=== PATIENT | female | born 1990 | race Caucasian/White ===

== ENCOUNTER → 2024-01-22 09:49 | Outpatient (CLI) | payer OTHER, SELFPAY ==
[2024-01-22 16:37] LABS: Urine N gonorrhoeae NOT DETECTED
[2024-01-22 16:39] LABS: Urine Chlamydia NOT DETECTED
== END ==
PROVIDERS: PCP Obstetrics & Gynecology; Referring Provider Obstetrics & Gynecology; Visit Provider Obstetrics & Gynecology
DX: Z11.3 Encounter for screening for infections with a predominantly sexual mode of transmission (principal)
CPT/HCPCS: 87491; 87591

== ENCOUNTER → 2024-02-25 07:26 | Outpatient (CLI) | payer OTHER, SELFPAY ==
--- NOTE | 2024-02-25 07:27 | DI.US.S_ITS ---
PROCEDURE: US PELVIC COMPLETE INDICATIONS: Pelvic pain TECHNIQUE: Real-time scanning was performed of the pelvic organs, with image documentation. Additional endovaginal scanning was necessary due to incomplete visualization of the adnexal and endometrial structures by transabdominal scanning. COMPARISON: None. FINDINGS: Uterus: Uterus is anteverted and mildly enlarged at 10.2 x 4.8 x 5.8 cm. The myometrium is homogeneous. The endometrium measures 2 mm combined thickness. Ovaries: The right ovary measures 7.3 x 4.3 x 4.8 cm, with a calculated ovarian volume of 78.5 cc. The left ovary measures 2.2 x 2.1 x 3.0 cm, with a calculated ovarian volume of 7.5 cc. The left ovary is only identified on the transabdominal scan. Within the right ovary, there is a 6.4 x 4.2 x 4.7 centimeter simple cyst with a peripheral 0.5 centimeter cystic lesion. Other: No pathologic free abdominal or pelvic fluid. Nabothian cysts are present at the cervix. IMPRESSION: 1. 0.5 cm simple cystic lesion within a 6.4 cm right ovarian simple cyst. 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 2. Otherwise, no sonographic abnormality of the uterus or ovaries. These findings were communicated via telephone to Dr Arzate, by Nitin Luther MD on 02/26/2024 at 12:45 p.m. We strive to produce accurate, complete, and clear reports of imaging services. To assist us in improving patient care, this report was composed using standard report templates and voice recognition software. Therefore, it may contain abnormal punctuation, insertions and/or omissions. Occasional wrong-word or sound-alike substitutions may occur. Though we review the report and make efforts to correct it, we do recommend that the report be read carefully in proper context to recognize any text inaccuracies. Dictated by: Nitin Luther M.D. on 02/26/2024 at 12:32 Approved by: Nitin Luther M.D. on 02/26/2024 at 12:47
== END ==
LOC: US 07:27
PROVIDERS: PCP Obstetrics & Gynecology; Referring Provider Obstetrics & Gynecology; Visit Provider Obstetrics & Gynecology
DX: N92.0 Excessive and frequent menstruation with regular cycle (principal); N83.291 Other ovarian cyst, right side; R10.2 Pelvic and perineal pain
CPT/HCPCS: 76856

== ENCOUNTER → 2024-02-26 14:39 | Outpatient (CLI) | payer OTHER, SELFPAY ==
[2024-02-26 15:26] LABS: HCG Quantitative /Beta subunit < 2.39 mIU/mL
== END ==
PROVIDERS: Referring Provider Obstetrics & Gynecology; Visit Provider Obstetrics & Gynecology
DX: R10.2 Pelvic and perineal pain (principal); R19.00 Intra-abdominal and pelvic swelling, mass and lump, unspecified site
CPT/HCPCS: 84702

== ENCOUNTER 2024-02-26 16:57 | Observation (INO) | payer OTHER, SELFPAY ==
[2024-02-26] VITALS (9 sets, daily range): BP systolic 112–122; BP diastolic 69–88; PULSE 80–97; RESP 12–18; TEMP 36.7–36.8; O2SAT 97–99; BMI 28.0
--- NOTE | 2024-02-26 | PATH_ITS ---
[facility] Accession Number: [id number] No. of containers..01 Tissue . 01 Material submitted: . ovary - RIGHT OVARY . 01 Diagnosis: RIGHT OVARY, OOPHORECTOMY: Disrupted fragments of ovary with multiple benign cystic follicles and stromal hyperplasia, most consistent with histologic features of polycystic ovary. Ovarian tissue is viable with no definite regions of necrosis or hemorrhage; no definite features of torsion identified. No neoplasia identified. MRV 03/04/2024 1554 Local . 01 Comment: As part of routine advanced quality engineer, this case was also reviewed by Dr. Shaikh, who agrees with the interpretation. . 01 Electronically signed: . Soheila Montilla MD, Pathologist NPI- [id number] . 01 Gross description: . Received in formalin with two patient identifiers and right ovary, is a disrupted ovary with cyst (11 grams, 4.2 x 3.7 x 2.3 cm). The membranous presumed cyst velázquez are thin and partially translucent with no excrescences or thickening grossly identified. Sectioning the ovary reveals unremarkable parenchyma with no additional lesions identified. Insurance Agency Sales Manager sections are submitted in A1-A3. ([id number]) The remaining specimen is submitted in cassettes A4-A12. ([id number]) /MRV 03/04/2024 1555 Local . 01 Pathologist provided ICD-10: R10.2 . 01 CPT . 229698 Specimen Comment: A courtesy copy of this report has been sent to [facility] Pathology Performed at: [address] [address], [place], [place] [id number] MD Thiago Perales MD Phone: [phone]
[2024-02-26] MEDS: HYDROMORPHONE 1 MG INJ 0.5 MG IV (17:44)
[2024-02-26 17:47] LABS: Add Manual Diff / Slide Review NO; Basophils Absolute Auto 100 /uL (0-100); Basophils Percent Auto 0.5 % (0-2); Eosinophils Absolute Auto 0 /uL (0-450); Eosinophils Percent Auto 0.2 % (2-4); Hematocrit 39.7 % (36-46); Hemoglobin 13.6 g/dL (12.0-16.0); Lymphocytes Absolute Auto 1900 /uL (1100-4500); Lymphocytes Percent Auto 18.3 % (25-40); Mean Corpuscular HGB Conc 34.3 % (30-36); Mean Corpuscular Hemoglobin 31.1 PG (26-34); Mean Corpuscular Volume 90.6 fL (80-100); Monocytes Absolute Auto 400 /uL (0-900); Monocytes Percent Auto 3.6 % (3-14); Neutrophils Absolute Auto 7900 /uL (1500-7000); Neutrophils Percent Auto 77.4 % (50-75); Platelet Count 271 X10^3/uL (150-400); Red Blood Cell Count 4.38 X10^6/uL (4.0-5.2); White Blood Cell Count 10.3 X10^3/uL (4.5-11.0)
--- NOTE | 2024-02-26 18:05 | PC.NURSE ---
Pt direct admit from MD office, arrived at 1710 A/O states pain 8/10, med w/good relief. Ultrasound guided IV inserted w/o incidence. Surgery scheduled at 1999 Call light w/in reach, pt calls appropriately for needs Continue w/plan of care.
--- NOTE | 2024-02-26 18:47 | PM.GYNHP.1 ---
History of Present Illness History of Present Illness Reason for admission: pelvic pain Narrative: Mallika Lucas is a 34 year old female , direct admission from OBGYN clinic for severe pelvic pain, concern for ovarian torsion with planned surgical intervention later this evening. See prior outpatient clinical documentation from same date. Pt met in acute care following admission, states no questions at this time. PFSH Social History household members: family Smoking Status: Never smoker alcohol intake: never Meds Home Medications and Allergies Home Medications Medication Instructions Recorded Confirmed Type escitalopram oxalate 20 mg tablet 20 mg PO DAILY 11/22/23 02/26/24 History (Lexapro) levonorgestrel 120 mcg-e.estradiol 1 patch transdermal Q7D 11/22/23 02/26/24 History 30 mcg/24 hr weekly transderm patch (Twirla) metformin 500 mg tablet 500 mg PO 3XD 11/22/23 02/26/24 History semaglutide 3 mg tablet (Rybelsus) 3 mg PO QAM 11/22/23 02/26/24 History Allergies Allergy/AdvReac Type Severity Reaction Status Date / Time No Known Drug Allergies Allergy Unverified 02/26/24 16:08 Review of Systems Review of Systems ROS: Yes All systems reviewed with the patient and are negative except as otherwise documented Exam Const General: cooperative, diaphoretic and ill appearing Nutritional Appearance: average body habitus Orientation: alert, awake and oriented x3 Limitations: mental status not altered Resp Effort & Inspection: normal respiratory effort and able to speak in complete sentences Cardio Pulses: normal peripheral pulses GI Inspection: normal to inspection Palpation: soft and guarding Other: deferred Skin General: no rashes or lesions noted Neuro General: patient alert, patient awake and patient oriented x3 Extrem General: normal to inspection Psych Mental Status: mental status grossly normal Judgment: judgment good Objective Labs 02/26/24 17:36 Labs: Laboratory Results - last 24 hr 02/26/24 17:36 WBC 10.3 RBC 4.38 Hgb 13.6 Hct 39.7 MCV 90.6 MCH 31.1 MCHC 34.3 RDW 13.0 Plt Count 271 Neut % (Auto) 77.4 H Lymph % (Auto) 18.3 L [place] % (Auto) 3.6 Eos % (Auto) 0.2 L Baso % (Auto) 0.5 Neut # (Auto) 7900 H Lymph # (Auto) 1900 [place] # (Auto) 400 Eos # (Auto) 0 Baso # (Auto) 100 Blood Type B Positive Antibody Screen Negative Assessment & Plan Assessment and plan (1) Pelvic pain: Status: Acute (2) Pelvic mass in female: Status: Acute Plan 34yo with acute onset pelvic pain, 6cm ROV cyst on US with concern for ovarian torsion Patient admitted to acute care floor for 23h observation, anticipate surgical intervention at 2000 secondary to last PO intake at 1400 today NPO except for meds CBC on admission wnl without significant leukocytosis, afebrile/VSS with low concern for underlying TOA/infectious process anticipate dc to home in AM following procedure pending clinical course Time-Based Coding :: [TOTAL MINUTES] spent with patient and on the chart (including review of chart, obtaining history, exam, reviewing outside data, placing orders, documenting exam and treatment plan, and counseling patient) on [DATE].
--- NOTE | 2024-02-26 18:52 | PM.PREOP ---
Pre-operative Note Interval Note History & Physical reviewed/Exam performed by Physician: Yes Changes to H&P: No H&P completed within 30 days and has changed as indicated here:: 02/26/24 ASA Class (for procedural sedation): II
[2024-02-26] MEDS: LACTATED RINGERS 500 ML 1000 ML IV (19:53)
[2024-02-26] MEDS: ACETAMINOPHEN IV 1,000 MG/100 ML VIAL 400 MG IV (20:15)
--- NOTE | 2024-02-26 20:23 | SUR.OPER ---
Lithotomy on padded OR bed. [place] Pad Positioner under torso. Head on pillow, arms padded and tucked at sides. Legs secured in padded yellow fins stirrups.
[2024-02-26] MEDS: BUPIVACAINE 0.25% (PF) VIAL 30 ML INJ (20:31)
--- NOTE | 2024-02-26 21:01 | PM.OP.1 ---
Operative Date/Time/Diagnoses Date of procedure: 02/26/24 Time of procedure: 20:17 Pre-op diagnosis: ROV neoplasm Post-op diagnosis: same Procedure & Clinicians Procedure: diagnostic laparoscopy, R oophorectomy Same procedure as scheduled: Yes Indications: acute pelvic pain, abnormal pelvic imaging with 6cm ROV mass Surgeon: Domitila Arzate Click Yes if Unassisted: Yes Anesthesia Type: General Operative Notes Findings: normal external female genitalia grossly enlarged R ovary without identifiable/distinct ovarian stroma secondary to distension by mass normal appearing bilateral fallopian tubes, L ovary, uterus negative abdominal survey normal appearing appendix Closure Type: primary Specimen(s): other (R ovary ) Estimated Blood Loss (mL): 5 Blood products transfused: none Procedure in detail: The patient was taken to the operating room, placed on the operating table in the supine position and intubated with ETT.? The patient was then placed in the lithotomy position with her legs in Elvis stirrups.? The patient was then examined under anesthesia with the above findings, then prepped and draped in a sterile fashion.? A gurrola catheter was placed for urinary diversion and a sterile sponge stick was placed in the vagina for atraumatic uterine manipulation.? Time out was performed. A 5mm incision was made infraumbilically and abdominal entry was achieved under direct visualization using the 5mm VisaPort trocar.? Abdomen was insufflated to 15mmHg.? Two lateral 5-mm ports were placed in a similar manner under direct visualization.? The uterus was anteverted and abdominal survey was noted with findings as noted above. The right infundibulopelvic ligament was identified, elevated and the Powerseal was used to transect and ligate the IP. The powerseal was again used to dissect the R fallopian tube away from the mesosalpinx.? The utero-ovarian artery was burned and ligated followed by dissection of the distorted ovarian neoplasm away from the mesosalpinx. With complete amputation the specimen was placed within the cul-de-sac and visual inspection of all dissection beds revealed excellent hemostasis including an area of broad ligament undermined on R posterior aspect secondary to adhesion of neoplasm. The infraumbilical incision was sharply extended and the 5mm trocar was removed and replaced with 11mm trocar under direct visualization. The Endocatch bag was introduced and the specimen was placed within under direct visualization without spill. The bag was then blanche to the level of the incision and insufflation was released. The specimen was bluntly ruptured and cyst contents were noted to serosanguinous and suctioned away from field. Following cyst rupture the Endocatch bag was brought easily through the incision, contents passed off the field for permanent study. The abdomen was re-insufflated and survey was again completed. Brief suction irrigation was performed with noted hemostasis. Lateral trocars were removed under direct visualization and insufflation was released and positive pressure ventilation was administered via anesthesia to assist with evacuation of pneumoperitoneum. The infraumbilical fascial incision closed using 0-0 vicryl on UR6 needle. Skin of all incisions was closed with 4-0 monocryl in a subcuticular fashion followed by application of dermabond. All instruments were removed from the vagina and patient had her legs taken out of stirrups. All counts correct x2. Patient was extubated and taken to PACU in stable condition. Complications: none Post-operative Condition: stable Disposition: Acute Care Plan for aftercare: anticipate dc to home in AM pending clinical course, continued observation
[2024-02-26] MEDS: HYDROMORPHONE 1 MG INJ IV ×3 (21:09→21:24)
[2024-02-26] MEDS: OXYCODONE IR 5 MG TABLET PO (21:22)
[2024-02-26] MEDS: hydrOXYzine 50 MG/ML INJ 25 MG IM (21:43)
[2024-02-26] MEDS: KETOROLAC 30 MG/ML VIAL IV (22:47)
[2024-02-27 00:38] VITALS: BP 112/80; PULSE 74; RESP 18; TEMP 36.7; O2SAT 97
[2024-02-27 01:16] VITALS: BP 96/57; PULSE 74
[2024-02-27] MEDS: ACETAMINOPHEN 325 MG TABLET 650 MG PO ×2 (01:50→09:52)
[2024-02-27] MEDS: KETOROLAC 30 MG/ML VIAL IV (04:43)
[2024-02-27 06:29] VITALS: BP 145/86; PULSE 86; RESP 19; TEMP 37; O2SAT 96
[2024-02-27 08:00] VITALS: BP 93/56; PULSE 63; RESP 18; TEMP 36.6; O2SAT 98
[2024-02-27] MEDS: IBUPROFEN 600 MG TABLET PO (09:51)
--- NOTE | 2024-02-27 10:58 | P.DS_ITS ---
History of Present Illness History of Present Illness Date Patient Seen: 02/27/24 Time Patient Seen: 10:59 Chief complaint: Acute abdominal pain, right ovarian mass Narrative: Mallika Lucas is a 34 year old female , direct admission from OBGYN clinic for severe pelvic pain, concern for ovarian torsion with planned surgical intervention later this evening. See prior outpatient clinical documentation from same date. Pt met in acute care following admission, states no questions at this time. Discharge Providers Provider Date of admission: 02/26/24 16:57 Discharge Date: 02/27/24 Primary care physician: Doctor Nehemiah MD Discharge provider: Hugo De La Cruz MD Summary Hospital Course Discharge Diagnosis: Cystic right ovarian mass Acute abdominal pain Status post diagnostic laparoscopy with laparoscopic right oophorectomy Hospital Course: On the evening of 02/26/2024, the patient was admitted for emergent diagnostic laparoscopy due to suspected right ovarian torsion. Full details of the procedure are well summarized on Dr. Domitila Arzate's operative note of that date. Following her surgery, the patient has done extremely well with prompt return of bowel and bladder function, she is ambulating independently, tolerating a regular diet, and her pain is well controlled with oral pain medications. She will be discharged at this time to home in an afebrile normotensive condition after counseling regarding precautionary symptoms, limitations activity, medications, and plans for follow-up which will be in 2 weeks. Medications at discharge will include resumption of all preadmission medications, plus oxycodone 5 mg p.o. every 4-6 hours as needed for pain, dispense 12 with no refills, Cipro 500 mg p.o. b.i.d. x5 days for UTI prophylaxis following catheterization, and ibuprofen 600 mg p.o. q.6 hours as needed for pain. Status at Discharge Cognitive/behavioral status at discharge: oriented Functional status at discharge: independent ambulation Overall status at discharge: patient is progressing back to baseline Time Spent with Patient Time spent: Less than 30 minutes Exam Vital Signs (past 8 hours): - 02/27/24 06:29 02/27/24 08:00 Temperature 98.6 F 97.9 F Pulse Rate 86 63 Respiratory Rate 19 18 Blood Pressure 145/86 H 93/56 L Pulse Oximetry 96 98 Oxygen Flow Rate 0 0 Oxygen Delivery Method Room Air Oxygen Flow Rate 0 Const General: cooperative and comfortable Nutritional Appearance: average body habitus Orientation: alert and oriented x3 HENMT Head: normal to inspection, atraumatic and abrasion Ears: hearing grossly normal bilaterally Face and sinus: face symmetric Eyes General: appearance normal, both eyes and all related structures Conjunctivae: conjunctivae normal Sclera: sclerae normal EOM: EOM intact bilaterally Neck Neck: normal visual inspection Resp Effort & Inspection: normal respiratory effort and able to speak in complete sentences Auscultation: clear to auscultation bilaterally Cardio Rate: regular rate Rhythm: regular rhythm Heart Sounds: S1 normal, S2 normal and no murmurs GI Inspection: normal to inspection and incision (Laparoscopy port incisions clean and dry) Palpation: soft, no hepatosplenomegaly and tender (Mild, diffuse postsurgical tenderness) External Female Exam: other (No significant bleeding noted) Extrem General: no calf tenderness Psych Appearance: grossly normal Mental Status: mental status grossly normal Speech and Movement: speech and movement normal Mood: congruent mood Affect: normal affect Attitude: cooperative Thought Process: normal Thought Content: normal Judgment: judgment good Objective Labs 02/26/24 17:36 Labs: Laboratory Results - last 24 hr 02/26/24 17:36 WBC 10.3 RBC 4.38 Hgb 13.6 Hct 39.7 MCV 90.6 MCH 31.1 MCHC 34.3 RDW 13.0 Plt Count 271 Neut % (Auto) 77.4 H Lymph % (Auto) 18.3 L [place] % (Auto) 3.6 Eos % (Auto) 0.2 L Baso % (Auto) 0.5 Neut # (Auto) 7900 H Lymph # (Auto) 1900 [place] # (Auto) 400 Eos # (Auto) 0 Baso # (Auto) 100 Blood Type B Positive Antibody Screen Negative PENDING SALE TO [facility] Social History household members: family Smoking Status: Never smoker alcohol intake: never Discharge Assessment & Plan Assessment and Plan Assessment: Cystic right ovarian mass Acute abdominal pain Status post diagnostic laparoscopy with laparoscopic right oophorectomy Plan of Treatment: Routine postoperative care with follow-up planned for 2 weeks postop Discharge Plan Discharge Plan Patient Disposition: Home Provider Discharge Comment: Please review the written instructions you received when you were discharged from the hospital. Your follow-up appointment will be scheduled for 2 weeks after your surgery and we look forward to seeing you then. If however in the meanwhile you have any issues, concerns, or questions, please this either by phone at [phone], or via the patient portal. Discharge orders & Medications Prescriptions: New ibuprofen 600 mg Tablet 600 mg PO Q6HR Qty: 20 0RF oxycodone 5 mg Tablet 5 mg PO Q4HR PRN (Reason: Pain, Moderate (4-6)) Qty: 12 0RF ciprofloxacin HCl [Cipro] 500 mg tablet 500 mg PO BID 5 Days Qty: 10 0RF Continued metformin 500 mg tablet 500 mg PO 3XD Rybelsus 3 mg tablet 3 mg PO QAM escitalopram oxalate [Lexapro] 20 mg tablet 20 mg PO DAILY Twirla 120-30 mcg/24 hr patch weekly 1 patch transdermal Q7D Rx Instructions: apply once weekly for 3 weeks of a 4-week cycle Follow up/Referrals: Doctor Nehemiah, [Primary Care Provider] - Discharge Health Status Multidrug resistant organism: No MDRO Diet/Activity/Treatments Diet: Diet as Tolerated Activity: As tolerated Other treatments: [id number] Tylenol may be used for additional pain relief. Prfu-aqc-[id number] stool softeners and/or MiraLax may be used as needed for constipation. Skin/Wound/Dressing Care Report to your healthcare provider any signs of infection, such as:: chills, fever, increased pain, unusual drainage and unusual redness Dressing: N/A Visit Report/Discharge Packet Instructions: DI for Laparoscopy, DI for Prescription Opioid Use Stand Alone Forms: Surgery Discharge Discharge Data Primary Care Provider: Doctor Nehemiah Attending Provider: Domitila Arzate Admit Date/Time: 02/26/24 16:57
[2024-02-27] MEDS: OXYCODONE IR 5 MG TABLET PO (11:25)
--- NOTE | 2024-02-27 12:07 | PC.NURSE ---
Pt A/O 3 lap sites across abdomen CDI Med for discomfort w/ good relief. Orders for discharge. Sl D/C intact. Home instructions given w/understanding Pt escorted by staff via W/C to waiting vehicle D/c in stable post op status
== END 2024-02-27 12:00 | disposition home or self-care (01) ==
PROVIDERS: Admitting Provider Obstetrics & Gynecology; Referring Provider Obstetrics & Gynecology; Visit Provider Obstetrics & Gynecology
PROC: (CPT 49320; principal; 2024-02-26 20:00)
DX: R10.2 Pelvic and perineal pain (principal); N83.291 Other ovarian cyst, right side; R19.00 Intra-abdominal and pelvic swelling, mass and lump, unspecified site
CPT/HCPCS: 58661; 84702; 85025; 86850; 86900; 86901; 96372; 96374; 96376; G0378; G0379; J0134; J0330; J1100; J1171; J1885; J2250; J2405; J2704; J3010; J3410

== ENCOUNTER 2024-04-03 11:45 | Emergency (ER) | payer OTHER, SELFPAY ==
[2024-02-26 17:06] VITALS: BMI 28.0
[2024-04-03 11:55] VITALS: BP 145/98; PULSE 88; RESP 18; TEMP 36.8; O2SAT 100; BMI 28.3
--- NOTE | 2024-04-03 12:14 | ED.RECABL ---
HPI - Recheck/Abnormal Lab/Rx <Becky Mcnamara PA-C - Last Filed: 04/03/24 13:20> General Chief Complaint: Recheck/Abnormal Lab/Rx Stated Complaint: needs help get a refill for ani depression meds Time Seen by Provider: 04/03/24 12:09 Source: patient Mode of arrival: Family Vehicle History of Present Illness HPI narrative: Ms. Lucas is a pleasant 34-year-old female with a past medical history of depression, type 2 diabetes who presents to the emergency department for medication refill. Patient states she has been taking Lexapro (escitalopram) 20mg once daily for the last 2 years but ran out of it 6 days ago. Patient states her OBGYN was previously prescribing her this medication however she is now scheduled to see a new provider on 04/09/2024 and therefore can not get a refill until then. Patient states over last 6 days she is slowly started to develop a sensation of nausea and overall just not feeling well she attributes to withdrawal from the medication. Patient also reports increase in her depression because of life stressors as she is from her but shares a daughter with him and her sister also recently . Patient denies SI/HI. Denies fevers, chills, chest pain, shortness of breath, vomiting, visual disturbance. Prescription medications: Ozempic, metformin, Lexapro. Related Data Home Medications Medication Instructions Recorded Confirmed escitalopram oxalate 20 mg tablet 20 mg PO DAILY 11/22/23 03/13/24 (Lexapro) levonorgestrel 120 mcg-e.estradiol 1 patch transdermal Q7D 11/22/23 03/13/24 30 mcg/24 hr weekly transderm patch (Twirla) metformin 500 mg tablet 500 mg PO 3XD 11/22/23 03/13/24 semaglutide 3 mg tablet (Rybelsus) 3 mg PO QAM 11/22/23 03/13/24 Previous Rx's Medication Instructions Recorded ibuprofen 600 mg tablet 600 mg PO Q6HR #20 tabs 02/27/24 escitalopram oxalate 10 mg tablet 10 mg PO DAILY #30 tabs 04/03/24 hydroxyzine HCl 50 mg tablet 50 mg PO BEDTIME PRN anxiety #10 04/03/24 tabs Allergies Allergy/AdvReac Type Severity Reaction Status Date / Time No Known Drug Allergies Allergy Verified 04/03/24 12:02 Review of Systems <Becky Mcnamara PA-C - Last Filed: 04/03/24 13:20> Review of Systems ROS Unobtainable: All systems reviewed & are unremarkable except as noted in HPI and below Patient History <Becky Mcnamara PA-C - Last Filed: 04/03/24 13:20> Medical History Pelvic mass in female Pelvic pain Social History household members: family Smoking Status: Never smoker alcohol intake: never Smoking Status: Never smoker alcohol intake frequency: 0-2 drinks per day Substance Use Type: marijuana Exam <Becky Mcnamara PA-C - Last Filed: 04/03/24 13:20> Narrative Exam Narrative: GENERAL: 34 year old patient appears stated age. Well-developed patient, tearful. HEAD: Atraumatic. Normocephalic. EYES: Extraocular motions intact. No scleral icterus. No injection or drainage. ENT: Nose without bleeding, purulent drainage. NECK: Trachea midline. Cervical ROM intact. CARDIOVASCULAR: Regular rate and rhythm. RESPIRATORY: ?Nonlabored respirations. ?Speaking in clear, full sentences. ?Clear to auscultation. Breath sounds equal bilaterally. No wheezes, rales, or rhonchi. ? NEURO: AOx3. ?Clear speech. ?Moves all 4 extremities appropriately. SKIN: No rash or erythema of visible areas Initial Vital Signs Initial Vital Signs: Vital Signs Temperature 98.3 F 04/03/24 11:55 Pulse Rate 88 04/03/24 11:55 Respiratory Rate 18 04/03/24 11:55 Blood Pressure 145/98 H 04/03/24 11:55 Pulse Oximetry 100 04/03/24 11:55 Oxygen Delivery Method Room Air 04/03/24 11:55 <Luis Antonio Griffith MD - Last Filed: 04/03/24 20:22> Initial Vital Signs Initial Vital Signs: Vital Signs Temperature 98.3 F 04/03/24 11:55 Pulse Rate 88 04/03/24 11:55 Respiratory Rate 18 04/03/24 11:55 Blood Pressure 145/98 H 04/03/24 11:55 Pulse Oximetry 100 04/03/24 11:55 Oxygen Delivery Method Room Air 04/03/24 11:55 Course <Becky Mcnamara PA-C - Last Filed: 04/03/24 13:20> Orders Ordered: ED Orders 04/03/24 12:36 Consult to [facility] [place] - Land Leasing Information Clerk Stat Discontinued Medications Escitalopram Oxalate (Escitalopram 10 Mg Tablet) 10 mg PO NOW ONE Stop: 04/03/24 12:34 Last Admin: 04/03/24 12:41 Dose: 10 mg Documented By: MPO Vital Signs Vital signs: Vital Signs - 8 hr 04/03/24 13:22 Temperature 98.6 F Pulse Rate 88 Respiratory Rate 20 Blood Pressure 150/87 H Pulse Oximetry 100 Oxygen Delivery Method Room Air <Luis Antonio Griffith MD - Last Filed: 04/03/24 20:22> Orders Ordered: ED Orders 04/03/24 12:36 Consult to [facility] Land Leasing Information Clerk Stat Discontinued Medications Escitalopram Oxalate (Escitalopram 10 Mg Tablet) 10 mg PO NOW ONE Stop: 04/03/24 12:34 Last Admin: 04/03/24 12:41 Dose: 10 mg Documented By: MPO Vital Signs Vital signs: Vital Signs - 8 hr 04/03/24 13:22 Temperature 98.6 F Pulse Rate 88 Respiratory Rate 20 Blood Pressure 150/87 H Pulse Oximetry 100 Oxygen Delivery Method Room Air MDM - Recheck/Abnormal Lab/Rx <Becky Mcnamaar PA-C - Last Filed: 04/03/24 13:20> MDM Narrative Medical decision making narrative: 34-year-old female with a past medical history of depression, type 2 diabetes presents to the emergency department for medication refill. Differential diagnosis includes but is not limited to SSRI withdrawal, medication refill, medication side effect, anxiety, depression, etc. On exam patient is in no acute distress, nontoxic appearing, she is tearful. Patient describes being upset about allowing her medications to run out in addition to life stressors. She denies suicidal ideation or self-harm. She does have good insight and judgment. Due to the patient's not being on her medication for the last 6 days, I will slowly increase her dose of Lexapro starting at 10 mg. She is seeing a doctor in 6 days and at that time her dose can be readjusted accordingly. A social media content manager consult was ordered as I believe the patient would benefit from local resources as she would benefit from cognitive behavioral therapy. Discussed signs symptoms to return to the ER for. Patient was provided with many helpful resources from social work. Patient verbalized understanding of all information, 1st dose of Lexapro given in the ER, hydroxyzine ordered if needed at night as requested by patient help with sleep/anxiety. Patient is stable for discharge at this time. Discharge Plan Departure Patient Disposition: Home Clinical Impression: Encounter for medication refill Activity Restrictions/Additional Instructions: Please follow up with your doctor on 04/09/24 as scheduled to address Lexapro dosing. (If you do not have a PCP you can call [phone]. ?to schedule an appointment with an [facility] Primary Care Provider) IF YOU DEVELOP ANY NEW OR WORSENING SYMPTOMS, RETURN TO THE ER! Please read the attached instructions, they highlight more specific treatments and interventions for you at home. Thank you for letting me participate in your care, Becky Mcnamara PA-C Prescriptions: New escitalopram oxalate 10 mg tablet 10 mg PO DAILY Qty: 30 0RF hydroxyzine HCl 50 mg tablet 50 mg PO BEDTIME PRN (Reason: anxiety) Qty: 10 0RF No Action metformin 500 mg tablet 500 mg PO 3XD Rybelsus 3 mg tablet 3 mg PO QAM escitalopram oxalate [Lexapro] 20 mg tablet 20 mg PO DAILY Twirla 120-30 mcg/24 hr patch weekly 1 patch transdermal Q7D Rx Instructions: apply once weekly for 3 weeks of a 4-week cycle ibuprofen 600 mg Tablet 600 mg PO Q6HR Qty: 20 0RF Referrals: Miscellaneous,DoctorMD [Primary Care Provider] - Stand Alone Forms: Patient Portal/API/Survey ED Sign-out <Luis Antonio Griffith MD - Last Filed: 04/03/24 20:22> Cosign ED Attending Rhodaature Attestation: I was immediately available in the department for consultation. This documentation has been reviewed and I agree with assessment and plan. Supervised by Luis Antonio Griffith MD
[2024-04-03] MEDS: ESCITALOPRAM 10 MG TABLET PO (12:41)
--- NOTE | 2024-04-03 12:58 | CM.SWNOTE ---
ED EXTRACTIVE METALLURGIST Note: Patient is a 34yo female, resident of [place], presented to the ED requesting a bridge refill of her Lexapro. Patient is a single mother to a 10yo. Reviewed chart and discussed pt with ED staff, ED EXTRACTIVE METALLURGIST consulted for MH resources until she can connect with her MH Provider. ED EXTRACTIVE METALLURGIST entered room, introduced self and role. Per pt, she has been under a lot of stress at work and has been experiencing loss of pets and her sister (to colon CA). She missed her appt with her psychiatric prescriber and ran out of Lexapro rx. ED EXTRACTIVE METALLURGIST utilized reflective listening to assist with validation of pt's emotions. Pt denies SI at this time, feels safe with discharging home with bridge prescription and follow up with MH Provider at [facility] (Prescriber: ALEXA Rivero and Psychologist: Dr. Odell Ramires). ED EXTRACTIVE METALLURGIST provided MH crisis contacts and MH Providers in [place] that take pt insurance. Pt stated she does not have a current PCP, consented to this EXTRACTIVE METALLURGIST to forward her contact information to TCM team with hopes of establishing with PCP. Pt stated she has no preference for provider but would like to stay within network. ED EXTRACTIVE METALLURGIST sent message to TCM team via [employer]. Plan: Discharge home with bridge medication for Lexapro, follow up with Psych prescriber on 04/09, and PCP establishment. ELIESER Aguilar
[2024-04-03 13:22] VITALS: BP 150/87; PULSE 88; RESP 20; TEMP 37; O2SAT 100
== END 2024-04-03 13:25 | disposition home or self-care (01) ==
PROVIDERS: Emergency Provider Physician Assistant
DX: Z76.0 Encounter for issue of repeat prescription (principal)
CPT/HCPCS: 99283

== ENCOUNTER → 2024-08-06 13:37 | Outpatient (CLI) | payer OTHER, SELFPAY ==
[2024-02-26 17:06] VITALS: BMI 28.0
[2024-08-06 16:08] LABS: Hemoglobin A1C% w Est Avg Glu 4.7 % (4.0-6.0)
[2024-08-06 16:19] LABS: HEMOLYSIS < 15 (0-50)
[2024-08-06 16:20] LABS: BUN Creatinine Ratio 13.5 (6-22); Blood Urea Nitrogen 12 mg/dL (7-17); Calcium 9.6 mg/dL (8.4-10.2); Carbon Dioxide 24 mmol/L (22-32); Chloride 103 mmol/L (98-107); Estimated Glomerular Filt Rate > 60 mL/min (>60); Glucose 72 mg/dL (70-100); Potassium 4.1 mmol/L (3.4-5.1); Sodium 138 mmol/L (137-145)
[2024-08-06 17:02] LABS: Hepatitis B Surface Antigen NEGATIVE s/c (NEGATIVE)
[2024-08-06 17:10] LABS: Vitamin B12 239 pg/mL (239-931)
[2024-08-06 17:14] LABS: HIV 1 & 2 Ab/Ag 4th Gen Combo NEGATIVE (NEGATIVE); Hep C Virus Ab w/Reflex Quant NEGATIVE s/c (NEGATIVE)
== END ==
PROVIDERS: PCP Nurse Practitioner Family; Referring Provider Nurse Practitioner Family; Visit Provider Nurse Practitioner Family
DX: E11.9 Type 2 diabetes mellitus without complications (principal); Z11.59 Encounter for screening for other viral diseases; Z11.4 Encounter for screening for human immunodeficiency virus [HIV]
CPT/HCPCS: 36415; 80048; 82607; 83036; 86803; 87340; 87389

== ENCOUNTER → 2024-08-18 13:54 | Outpatient (CLI) | payer OTHER, SELFPAY ==
[2024-08-18 08:37] VITALS: BMI 28.0
== END ==
LOC: LAB 14:04
PROVIDERS: PCP Nurse Practitioner Family; Visit Provider Physician Assistant
DX: J02.9 Acute pharyngitis, unspecified (principal)
CPT/HCPCS: 87070

== ENCOUNTER → 2024-08-21 13:21 | Outpatient (CLI) | payer OTHER, SELFPAY ==
[2024-08-18 08:37] VITALS: BMI 28.0
[2024-08-21 14:13] LABS: Influenza A - CEPHEID Flu A NEGATIVE (NEGATIVE); Influenza B - CEPHEID Flu B NEGATIVE (NEGATIVE); Respiratory Syncytial Virus Negative (Negative)
[2024-08-21 14:15] LABS: COVID-19 CEPHEID 4-PLEX PCR Negative (Negative)
== END ==
PROVIDERS: PCP Nurse Practitioner Family; Referring Provider Nurse Practitioner Family; Visit Provider Nurse Practitioner Family
DX: J02.9 Acute pharyngitis, unspecified (principal)
CPT/HCPCS: 0241U

== ENCOUNTER → 2024-08-21 13:28 | Outpatient (CLI) | payer OTHER, SELFPAY ==
[2024-08-18 08:37] VITALS: BMI 28.0
[2024-08-21 14:03] LABS: Hematocrit 37.3 % (36-46); Hemoglobin 12.9 g/dL (12.0-16.0); Mean Corpuscular HGB Conc 34.7 % (30-36); Mean Corpuscular Hemoglobin 30.8 PG (26-34); Mean Corpuscular Volume 88.8 fL (80-100); Platelet Count 268 X10^3/uL (150-400); Red Cell Distribution Width 12.7 % (11.6-14.8); White Blood Cell Count 6.2 X10^3/uL (4.5-11.0)
[2024-08-21 14:26] LABS: C-Reactive Protein Quant 2.6 mg/dL (<1.0)
[2024-08-21 14:48] LABS: Neutrophils Absolute Manual 3720 /uL (3000-5900); Total Cells Counted 100
[2024-08-21 14:49] LABS: RBC Morphology Norm
[2024-08-21 14:55] LABS: TSH w/ Reflex to FT4 1.78 uIU/mL (0.47-4.68)
[2024-08-21 15:08] LABS: Erythrocyte Sedimentation Rate 43 MM/HR (0-20)
== END ==
PROVIDERS: PCP Nurse Practitioner Family; Referring Provider Nurse Practitioner Family; Visit Provider Nurse Practitioner Family
DX: N64.4 Mastodynia (principal); R53.83 Other fatigue; M54.2 Cervicalgia; J02.9 Acute pharyngitis, unspecified
CPT/HCPCS: 0241U; 36415; 84443; 85025; 85651; 86140

== ENCOUNTER 2024-09-06 17:29 | Emergency (ER) | payer OTHER, SELFPAY ==
[2024-08-18 08:37] VITALS: BMI 28.0
[2024-09-06 17:40] VITALS: BP 185/96; PULSE 78; RESP 16; TEMP 36.8; O2SAT 99; BMI 27.2
--- NOTE | 2024-09-06 19:06 | ED_ITS ---
HPI - Skin/Abscess/Foreign Bdy General Chief complaint: Skin/Abscess/Foreign Body Stated complaint: L Breast Burning Pain t-1, Lump Time Seen by Provider: 09/06/24 18:45 History of Present Illness HPI narrative: 34-year-old female history of depression, anxiety, type 2 diabetes, presents with left breast pain today she felt a mass and got concerned came in to be evaluated. Of note she was seen by her PCP on August 26 for right breast pain and was given Keflex but still symptomatic and as such a mammogram was ordered pending September 09. Patient patient is on Ozempic but otherwise denies any unintentional on weight loss, or night sweats or back pain. Other than what is stated 14 point review of system is negative. Related Data Home Medications Medication Instructions Recorded Confirmed escitalopram oxalate 20 mg tablet 20 mg PO DAILY 11/22/23 08/26/24 (Lexapro) metformin 500 mg tablet 500 mg PO 3XD 11/22/23 08/26/24 doxepin 10 mg capsule 10 mg PO ONCE PM 08/06/24 08/26/24 lamotrigine 100 mg tablet 100 mg PO DAILY 08/06/24 08/26/24 Previous Rx's Medication Instructions Recorded hydroxyzine HCl 50 mg tablet 50 mg PO BEDTIME PRN anxiety #10 04/03/24 tabs levonorgestrel 120 mcg-e.estradiol 1 patch transdermal Q7D #3 patches 04/09/24 30 mcg/24 hr weekly transderm patch (Twirla) semaglutide 1 mg/dose (4 mg/3 mL) 1 mg (0.75 mL) SUBCUT QWEEK #3 mL 09/04/24 subcutaneous pen injector Allergies Allergy/AdvReac Type Severity Reaction Status Date / Time No Known Drug Allergies Allergy Verified 08/26/24 14:37 Review of Systems Review of Systems ROS Unobtainable: All systems reviewed & are unremarkable except as noted in HPI and below Patient History Medical History (Updated 09/06/24 @ 21:21 by Tommie Howard DO) Insomnia Depression Pelvic mass in female Pelvic pain Social History household members: family alcohol intake: never alcohol intake frequency: 0-2 drinks per day Exam Narrative Exam Narrative: GENERAL: [34] year old patient appears stated age. Well-developed patient, in mild distress. HEAD: Atraumatic. Normocephalic. EYES: Pupils equal round and reactive. Extraocular motions intact. No scleral icterus. No injection or drainage. NECK: Trachea midline. Non tender L Breast exam - fibrocyst on exam TTP at 10 o clock position, no redness, warmth EXTREMITIES: No edema or joint tenderness. BACK: Nontender without deformity or crepitance. No flank tenderness. NEURO: AOx3. SKIN: No rash or erythema of visible areas Initial Vital Signs Initial Vital Signs: Vital Signs Temperature 98.2 F 09/06/24 17:40 Pulse Rate 78 09/06/24 17:40 Respiratory Rate 16 09/06/24 17:40 Blood Pressure 185/96 H 09/06/24 17:40 Pulse Oximetry 99 09/06/24 17:40 Oxygen Delivery Method Room Air 09/06/24 17:40 Course Orders Ordered: ED Orders 09/06/24 19:04 US breast LT limited Stat Discontinued Medications Hydrocodone Bitart/Acetaminophen (Hydrocodone/Acet 5/325 Tablet) 1 tab PO NOW ONE Stop: 09/06/24 19:05 Last Admin: 09/06/24 19:17 Dose: 1 tab Documented By: LLOYD Ketorolac Tromethamine (Ketorolac 30 Mg/Ml Vial) 30 mg IM NOW ONE Stop: 09/06/24 19:05 Last Admin: 09/06/24 19:17 Dose: 30 mg Documented By: LLOYD Vital Signs Vital signs: Vital Signs - 8 hr 09/06/24 17:40 Temperature 98.2 F Pulse Rate 78 Respiratory Rate 16 Blood Pressure 185/96 H Pulse Oximetry 99 Oxygen Delivery Method Room Air MDM - Skin/Abscess/Foreign Bdy Imaging Data US - abdomen: Radiologist's Impression: [address] [address] Ultrasound Report Signed Patient: Mallika Lucas MR#: [id number] : 1990 Acct:[id number] Age/Sex: 34 / F Date of Service: 09/06/24 Loc: ED Accession Number: [id number] Procedure: US breast LT limited Ordering Provider: Tommie Howard D.O. US breast LT limited: 09/06/2024. BI-RADS: 0 CLINICAL: 34-year old female for left diagnostic breast ultrasound. Tyrer- Cuzick lifetime risk of 9.8%. PRIOR EXAMS No prior examinations available. ULTRASOUND TECHNIQUE TARGETED Left Breast Ultrasound: Real-time ultrasound exam was performed focused to area of clinical and/or imaging concern. Real-time roberts scale and color doppler imaging of the area of clinical interest was performed with image documentation. ULTRASOUND FINDINGS Left: Inner at 9:00, 4.0 cm from nipple, measuring 1.6 x 0.7 x 0.7 cm: Correlating with palpable lump there is a simple anechoic cyst present. Doppler shows no vascularity. IMPRESSION: Left (Simple Cyst): Inner at 9:00, 4.0 cm from nipple, measuring 1.6 x 0.7 x 0.7 cm * Incomplete - Needs additional imaging evaluation. RECOMMENDATIONS Left: Inner at 9:00, 4.0 cm from nipple * Further evaluation with diagnostic mammography and diagnostic ultrasound. Ultrasound to be performed only if needed. OVERALL ASSESSMENT CATEGORY BI-RADS-0: Incomplete - Need Additional Imaging Evaluation. ELECTRONICALLY SIGNED: Jesus Arnold M.D. on 09/06/2024 at 08:57:51 PM PT Interpreting Station ID: [id number] [facility] Narrative Medical decision making narrative: Vital signs nurse triage note medication list previous ER visits and all imaging modalities reviewed. Ultrasound reviewed showing left simple cyst 4 cm from nipple measuring 1.6 x 0.7 x 0.7 cm and recommendations for further evaluation with diagnostic mammogram. Patient given Toradol and Dodson here. Patient has upcoming mammogram scheduled. Differential diagnosis includes fibroadenoma fibrocystic breast disease and breast cancer. Return with new or worsening symptoms. Discharge Plan Departure Patient Disposition: Home Clinical Impression: Breast cyst Qualifiers: Laterality: left Qualified Code(s): N60.02 - Solitary cyst of left breast Instructions: DI for Breast Cyst Activity Restrictions/Additional Instructions: Return with new or worsening symptoms. Follow up for mammogram on Saturday and your pcp for results of mammogram. Take your medicines as previously prescribed Prescriptions: No Action Twirla 120-30 mcg/24 hr patch weekly 1 patch transdermal Q7D Qty: 3 2RF Rx Instructions: apply once weekly for 3 weeks of a 4-week cycle Ozempic 1 mg/dose (4 mg/3 mL) pen injector 1 mg SUBCUT QWEEK Qty: 3 0RF metformin 500 mg tablet 500 mg PO 3XD escitalopram oxalate [Lexapro] 20 mg tablet 20 mg PO DAILY lamotrigine 100 mg tablet 100 mg PO DAILY doxepin 10 mg capsule 10 mg PO ONCE PM hydroxyzine HCl 50 mg tablet 50 mg PO BEDTIME PRN (Reason: anxiety) Qty: 10 0RF Referrals: Cande Kaur FNP-BC [Primary Care Provider] - Stand Alone Forms: Patient Portal/API/Survey
[2024-09-06] MEDS: HYDROCODONE/ACET 5/325 TABLET 1 TAB PO (19:17)
[2024-09-06] MEDS: KETOROLAC 30 MG/ML VIAL IM (19:17)
--- NOTE | 2024-09-06 19:27 | PC.NURSE ---
Tenderness to left armpit and left breast. Most tender to right of left breast nipple. No obvious protrusions noted. Mild redness?
[2024-09-06] MEDS: HYDROCODONE/ACET 5/325 PREPACK 1 BOTTLE MISC (21:27)
[2024-09-06 21:33] VITALS: BP 127/65; PULSE 76; O2SAT 95
== END 2024-09-06 21:35 | disposition home or self-care (01) ==
PROVIDERS: Emergency Provider Family Medicine; PCP Nurse Practitioner Family
DX: N60.02 Solitary cyst of left breast (principal)
CPT/HCPCS: 76642; 96372; 99283; 99284; J1885

== ENCOUNTER 2024-09-08 10:01 | Emergency (ER) | payer OTHER, SELFPAY ==
[2024-08-18 08:37] VITALS: BMI 28.0
[2024-09-08 10:04] VITALS: BP 156/86; PULSE 74; RESP 16; TEMP 36.8; O2SAT 100; BMI 27.2
--- NOTE | 2024-09-08 11:48 | DI.US.S_ITS ---
US breast LT limited: 09/08/2024. BI-RADS: 0 CLINICAL: 34-year old female for left diagnostic breast ultrasound that is a follow-up to diagnostic breast ultrasound on 09/06/2024. Tyrer-Cuzick lifetime risk of 9.8%. PRIOR EXAMS Breast Ultrasound(s): 09/06/2024. ULTRASOUND TECHNIQUE Real-time roberts scale and color doppler imaging of the area of clinical interest was performed with image documentation. Left targeted breast ultrasound of the area of clinical interest and the axilla was performed with image documentation. ULTRASOUND FINDINGS Left: Upper Inner at 10:30, 7.0 cm from nipple, measuring 1 x 0.5 x 1 cm, previously measuring 1.6 x 0.7 x 0.7 cm. Previous report: Inner at 9:00, 4.0 cm from nipple: This is a site of new pain. A lobulated, predominantly anechoic cyst with a few possible internal echoes is surrounded by very dense fibrous tissue, likely a correlate to the pain. Left: Inner at 9:00: There is fibrocystic tissue as seen previously, accounting for a previous recent pain episode. IMPRESSION: Left: Upper Inner at 10:30, 7.0 cm from nipple, measuring 1 x 0.5 x 1 cm, previously measuring 1.6 x 0.7 x 0.7 cm. Previous report: Inner at 9:00, 4.0 cm from nipple * Incomplete - Needs additional imaging evaluation. Left: Inner at 9:00 * Incomplete - Needs additional imaging evaluation. Left * Bilateral diagnostic mammogram to complete the work up for breast pain is recommended. Mammography was not available today due to technical issues. RECOMMENDATIONS Left: Upper Inner at 10:30, 7.0 cm from nipple * Further evaluation with diagnostic mammography and diagnostic ultrasound. Ultrasound to be performed only if needed. COMMENTS: Findings and recommendations were conveyed to the patient during today's evaluation. OVERALL ASSESSMENT CATEGORY BI-RADS-0: Incomplete - Need Additional Imaging Evaluation. PRELIMINARILY ELECTRONICALLY SIGNED: Michelle Huizar M.D. on 09/08/2024 at 02:04:41 PM PT ELECTRONICALLY SIGNED: Michelle Huizar M.D. on 09/08/2024 at 02:48:52 PM PT Interpreting Station ID: [id number]
--- NOTE | 2024-09-08 12:08 | ED_ITS ---
HPI - Skin/Abscess/Foreign Bdy <Clive Herbert PA-C - Last Filed: 09/08/24 15:37> General Chief complaint: Skin/Abscess/Foreign Body Stated complaint: Left breast pain Time Seen by Provider: 09/08/24 11:35 Source: patient Mode of arrival: Ambulatory Limitations: no limitations History of Present Illness HPI narrative: 34-year-old female with past medical history type 2 diabetes, depression return to the ED with a painful new left breast lump. Patient was seen in the ED on 09/06 for a lump in the left breast, ultrasound was obtained which showed a simple cyst measuring 1.6 x 0.7 x 0.7 cm at the inner 9 o'clock position. Patient has a mammogram scheduled for tomorrow for further evaluation. Meanwhile, patient states that she has a new painful lump in the left breast. No fevers or chills. No nausea, vomiting. Related Data Home Medications Medication Instructions Recorded Confirmed escitalopram oxalate 20 mg tablet 20 mg PO DAILY 11/22/23 09/08/24 (Lexapro) metformin 500 mg tablet 500 mg PO 3XD 11/22/23 09/08/24 doxepin 10 mg capsule 10 mg PO ONCE PM 08/06/24 09/08/24 lamotrigine 100 mg tablet 100 mg PO DAILY 08/06/24 09/08/24 Previous Rx's Medication Instructions Recorded hydroxyzine HCl 50 mg tablet 50 mg PO BEDTIME PRN anxiety #10 04/03/24 tabs levonorgestrel 120 mcg-e.estradiol 1 patch transdermal Q7D #3 patches 04/09/24 30 mcg/24 hr weekly transderm patch (Twirla) semaglutide 1 mg/dose (4 mg/3 mL) 1 mg (0.75 mL) SUBCUT QWEEK #3 mL 09/04/24 subcutaneous pen injector dicloxacillin 500 mg capsule 500 mg PO Q6H 10 days #40 caps 09/08/24 Allergies Allergy/AdvReac Type Severity Reaction Status Date / Time No Known Drug Allergies Allergy Verified 09/08/24 15:52 Review of Systems <Clive Herbert PA-C - Last Filed: 09/08/24 15:37> Constitutional Constitutional: Denies chills, Denies fatigue, Denies fever(s), Denies frequent falls, Denies lethargy and Denies weakness Eyes Eyes: Denies change in vision, Denies eye discharge, Denies irritation and Denies loss of vision ENT Ears, Nose, Mouth, and Throat: Denies change in voice, Denies dizziness, Denies neck pain, Denies sore throat and Denies throat swelling Cardiovascular Cardiovascular: Denies chest pain, Denies irregular heart rhythm, Denies lightheadedness, Denies palpitations, Denies dyspnea, Denies dyspnea on exertion and Denies orthopnea Respiratory Respiratory: Denies cough, Denies dyspnea, Denies dyspnea on exertion and Denies wheezing Gastrointestinal Gastrointestinal: Denies abdominal pain, Denies change in bowel habits, Denies diarrhea, Denies nausea and Denies vomiting Musculoskeletal Musculoskeletal: Denies neck pain and Denies numbness Integumentary/Breasts Skin/Breast: Reports breast pain, Reports breast mass, Denies pruritus, Denies erythema, Denies rash and Denies wounds Neurologic Neurologic: Denies behavioral changes, Denies confusion, Denies dizziness, Denies frequent falls, Denies loss of vision, Denies numbness and Denies weakness Psychiatric Psychiatric: Denies anxiety, Denies behavioral changes, Denies confusion, Denies depression, Denies homicidal ideation and Denies suicidal ideation Endocrine Endocrine: Denies fatigue, Denies flushing and Denies palpitations Hematologic/Lymphatic Hematologic/Lymphatic: Denies easy bruising Allergic/Immunologic Allergic/Immunologic: Denies urticaria, Denies throat swelling and Denies wheezing Patient History <Clive Herbert PA-C - Last Filed: 09/08/24 15:37> Medical History (Updated 09/08/24 @ 16:29 by Evelyn Neumann PA-C) Elevated sed rate CRP elevated Insomnia Depression Pelvic mass in female Pelvic pain Social History household members: family alcohol intake: never Smoking Status: Never smoker alcohol intake frequency: 0-2 drinks per day Exam <Clive Herbert PA-C - Last Filed: 09/08/24 15:37> Narrative Exam Narrative: Const General:?cooperative, healthy appearing and comfortable [facility] Head:?normal to inspection Ears:?hearing grossly normal bilaterally Nose:?external nose normal Face and sinus:?normal facial exam and sinuses nontender Mouth:?oral mucosae normal Throat:?posterior oropharynx normal Eyes General:?appearance normal, both eyes and all related structures Neck Neck:?normal visual inspection and no lymphadenopathy noted Resp Effort & Inspection:?normal respiratory effort Auscultation:?clear to auscultation bilaterally Cardio Rate:?regular rate Rhythm:?regular rhythm Breast/integumentary Tenderness to palpation in the 10:00 to 11:00 region a.m. the left breast. Overlying skin appears to be intact and normal without erythema, discharge, warmth. Neuro General:?patient alert, patient awake and patient oriented x3 Initial Vital Signs Initial Vital Signs: Vital Signs Temperature 98.3 F 09/08/24 10:04 Pulse Rate 74 09/08/24 10:04 Respiratory Rate 16 09/08/24 10:04 Blood Pressure 156/86 H 09/08/24 10:04 Pulse Oximetry 100 09/08/24 10:04 Oxygen Delivery Method Room Air 09/08/24 10:04 <Christian Wallace MD - Last Filed: 09/08/24 18:38> Initial Vital Signs Initial Vital Signs: Vital Signs Temperature 98.3 F 09/08/24 10:04 Pulse Rate 74 09/08/24 10:04 Respiratory Rate 16 09/08/24 10:04 Blood Pressure 156/86 H 09/08/24 10:04 Pulse Oximetry 100 09/08/24 10:04 Oxygen Delivery Method Room Air 09/08/24 10:04 Course <Clive Herbert PA-C - Last Filed: 09/08/24 15:37> Orders Ordered: ED Orders 09/08/24 11:48 breast LT limited Stat Discontinued Medications Oxycodone/Acetaminophen (Oxycodone/Acetaminophen 5/325 Tablet) 1 tab PO NOW ONE Stop: 09/08/24 13:33 Last Admin: 09/08/24 13:45 Dose: 1 tab Documented By: RL Vital Signs Vital signs: Vital Signs - 8 hr 09/08/24 15:22 Pulse Rate 69 Respiratory Rate 16 Blood Pressure 130/79 Pulse Oximetry 96 Oxygen Delivery Method Room Air <Christian Wallace MD - Last Filed: 09/08/24 18:38> Orders Ordered: ED Orders 09/08/24 11:48 breast LT limited Stat Discontinued Medications Oxycodone/Acetaminophen (Oxycodone/Acetaminophen 5/325 Tablet) 1 tab PO NOW ONE Stop: 09/08/24 13:33 Last Admin: 09/08/24 13:45 Dose: 1 tab Documented By: ANU Vital Signs Vital signs: Vital Signs - 8 hr 09/08/24 15:22 Pulse Rate 69 Respiratory Rate 16 Blood Pressure 130/79 Pulse Oximetry 96 Oxygen Delivery Method Room Air MDM - Skin/Abscess/Foreign Bdy <Clive Herbert PA-C - Last Filed: 09/08/24 15:37> MDM Narrative Medical decision making narrative: 34-year-old female with past medical history type 2 diabetes, depression return to the ED with a painful new left breast lump. Concern for new mass versus mastitis versus abscess versus other. Will obtain an ultrasound to re-evaluate. Patient given Percocet for pain control. US read as follows: US breast LT limited: 09/08/2024. BI-RADS: 0 CLINICAL: 34-year old female for left diagnostic breast ultrasound that is a follow-up to diagnostic breast ultrasound on 09/06/2024. Tyrer-Cuzick lifetime risk of 9.8%. PRIOR EXAMS Breast Ultrasound(s): 09/06/2024. ULTRASOUND TECHNIQUE Real-time roberts scale and color doppler imaging of the area of clinical interest was performed with image documentation. Left targeted breast ultrasound of the area of clinical interest and the axilla was performed with image documentation. ULTRASOUND FINDINGS Left: Upper Inner at 10:30, 7.0 cm from nipple, measuring 1 x 0.5 x 1 cm, previously measuring 1.6 x 0.7 x 0.7 cm. Previous report: Inner at 9:00, 4.0 cm from nipple: This is a site of new pain. A lobulated, predominantly anechoic cyst with a few possible internal echoes is surrounded by very dense fibrous tissue, likely a correlate to the pain. Left: Inner at 9:00: There is fibrocystic tissue as seen previously, accounting for a previous recent pain episode. IMPRESSION: Left: Upper Inner at 10:30, 7.0 cm from nipple, measuring 1 x 0.5 x 1 cm, previously measuring 1.6 x 0.7 x 0.7 cm. Previous report: Inner at 9:00, 4.0 cm from nipple * Incomplete - Needs additional imaging evaluation. Left: Inner at 9:00 * Incomplete - Needs additional imaging evaluation. Left * Bilateral diagnostic mammogram to complete the work up for breast pain is recommended. Mammography was not available today due to technical issues. RECOMMENDATIONS Left: Upper Inner at 10:30, 7.0 cm from nipple * Further evaluation with diagnostic mammography and diagnostic ultrasound. Ultrasound to be performed only if needed. COMMENTS: Findings and recommendations were conveyed to the patient during today's evaluation. OVERALL ASSESSMENT CATEGORY BI-RADS-0: Incomplete - Need Additional Imaging Evaluation. PRELIMINARILY ELECTRONICALLY SIGNED: Michelle Huizar M.D. on 09/08/2024 at 02:04:41 PM PT ELECTRONICALLY SIGNED: Michelle Huizar M.D. on 09/08/2024 at 02:48:52 PM PT Interpreting Station ID: [id number] Discussed findings with patient. Called mammogram scheduling and requested that patient's mammogram appointment be moved as early as possible, given that she has some acute issues. Mammogram scheduling is aware and will call patient to schedule her earlier. Given that patient is in significant pain, prescribed antibiotics to cover infectious causes. Patient also has a primary care appointment later today for follow-up. ED return precautions were discussed with patient. Patient verbalized understanding. Medical records reviewed: Yes Discharge Plan Departure Patient Disposition: Home Clinical Impression: Cyst, breast Qualifiers: Laterality: left Qualified Code(s): N60.02 - Solitary cyst of left breast Instructions: DI for Breast Cyst Activity Restrictions/Additional Instructions: You were evaluated in the ED today for a painful breast lump. The ultrasound does show a cyst corresponding to where you are experiencing the pain. Given that it is quite painful, we will treat with antibiotics in case of an infection. The mammogram coordinator is looking to find you earliest possible appointment and will call you. Please do follow-up with your PCP as scheduled today. Return to the ED if you have worsening symptoms. Prescriptions: New dicloxacillin 500 mg capsule 500 mg PO Q6H 10 Days Qty: 40 0RF No Action Twirla 120-30 mcg/24 hr patch weekly 1 patch transdermal Q7D Qty: 3 2RF Rx Instructions: apply once weekly for 3 weeks of a 4-week cycle Ozempic 1 mg/dose (4 mg/3 mL) pen injector 1 mg SUBCUT QWEEK Qty: 3 0RF metformin 500 mg tablet 500 mg PO 3XD escitalopram oxalate [Lexapro] 20 mg tablet 20 mg PO DAILY lamotrigine 100 mg tablet 100 mg PO DAILY doxepin 10 mg capsule 10 mg PO ONCE PM hydroxyzine HCl 50 mg tablet 50 mg PO BEDTIME PRN (Reason: anxiety) Qty: 10 0RF Referrals: Cande Kaur FNP-BC [Primary Care Provider] - Stand Alone Forms: Patient Portal/API/Survey ED Sign-out <Christian Wallace MD - Last Filed: 09/08/24 18:38> Cosign ED Attending Rhodaature Attestation: I was immediately available in the department for consultation. ?This documentation has been reviewed and I agree with assessment and plan. Supervised by Christian Wallace MD
[2024-09-08] MEDS: OXYCODONE/ACETAMINOPHEN 5/325 TABLET 1 TAB PO (13:45)
[2024-09-08 15:22] VITALS: BP 130/79; PULSE 69; RESP 16; O2SAT 96
== END 2024-09-08 15:22 | disposition home or self-care (01) ==
PROVIDERS: Emergency Provider Student in an Organized Health Care Education/Training Program; PCP Nurse Practitioner Family
DX: N60.02 Solitary cyst of left breast (principal); R79.82 Elevated C-reactive protein (CRP); R70.0 Elevated erythrocyte sedimentation rate
CPT/HCPCS: 36415; 76642; 85025; 85651; 86140; 99283

== ENCOUNTER → 2024-09-08 16:30 | Outpatient (CLI) | payer OTHER, SELFPAY ==
[2024-08-18 08:37] VITALS: BMI 28.0
[2024-09-08 16:42] LABS: Add Manual Diff / Slide Review NO; Basophils Absolute Auto 100 /uL (0-100); Basophils Percent Auto 0.6 % (0-2); Eosinophils Absolute Auto 0 /uL (0-450); Eosinophils Percent Auto 0.3 % (2-4); Hematocrit 38.6 % (36-46); Hemoglobin 12.8 g/dL (12.0-16.0); Lymphocytes Absolute Auto 2400 /uL (1100-4500); Lymphocytes Percent Auto 25.7 % (25-40); Mean Corpuscular HGB Conc 33.1 % (30-36); Mean Corpuscular Hemoglobin 29.9 PG (26-34); Mean Corpuscular Volume 90.4 fL (80-100); Monocytes Absolute Auto 500 /uL (0-900); Monocytes Percent Auto 5.1 % (3-14); Neutrophils Absolute Auto 6500 /uL (1500-7000); Neutrophils Percent Auto 68.3 % (50-75); Platelet Count 231 X10^3/uL (150-400); Red Blood Cell Count 4.27 X10^6/uL (4.0-5.2); Red Cell Distribution Width 13.2 % (11.6-14.8); White Blood Cell Count 9.5 X10^3/uL (4.5-11.0)
[2024-09-08 17:05] LABS: Erythrocyte Sedimentation Rate 72 MM/HR (0-20)
[2024-09-08 17:14] LABS: C-Reactive Protein Quant 2.7 mg/dL (<1.0)
== END ==
PROVIDERS: PCP Nurse Practitioner Family; Referring Provider Nurse Practitioner Family; Visit Provider Physician Assistant
DX: N60.09 Solitary cyst of unspecified breast (principal); R79.82 Elevated C-reactive protein (CRP); R70.0 Elevated erythrocyte sedimentation rate
CPT/HCPCS: 36415; 85025; 85651; 86140

== ENCOUNTER → 2024-09-10 12:03 | Outpatient (CLI) | payer OTHER, SELFPAY ==
[2024-08-18 08:37] VITALS: BMI 28.0
--- NOTE | 2024-09-10 12:07 | DI.MG.S_ITS ---
MM diagnostic mammo BI: 09/10/2024. BI-RADS: 3 CLINICAL: 34-year old female for bilateral diagnostic mammogram that is a follow-up to diagnostic breast ultrasound on 09/06/2024. Tyrer-Cuzick lifetime risk of 9.2%. No personal or first-degree family history of breast cancer. The patient reports pain (less than 1 month) in both breasts. PRIOR EXAMS Breast Ultrasound(s): 09/08/2024, 09/06/2024. MAMMOGRAPHY TECHNIQUE: 2D and 3D (tomosynthesis) digital mammographic views obtained, with additional images as needed for full coverage. Current study was also evaluated with a Computer Aided Detection (CAD) system. DENSITY D. The breasts are extremely dense, which lowers the sensitivity of mammography. MAMMOGRAPHY FINDINGS Left: Upper Inner at 10:30, 7.0 cm from nipple: No mammographic correlate. No mass or significant calcifications. Bilateral: No suspicious mass, asymmetry, microcalcification, or other abnormality seen. IMPRESSION: Right * No evidence of malignancy. Left: Upper Inner at 10:30, 7.0 cm from nipple * Probably Benign. RECOMMENDATIONS * As a precaution, recommend follow-up left breast US in the region of pain and fibrocystic changes. Left: Upper Inner at 10:30, 7.0 cm from nipple * Six month followup with diagnostic ultrasound. COMMENTS: Findings and recommendations were conveyed to the patient during today's evaluation. Patient is advised to monitor for change. OVERALL ASSESSMENT CATEGORY BI-RADS-3: Probably Benign. ELECTRONICALLY SIGNED: Jesus Arnold M.D. on 09/10/2024 at 01:09:13 PM PT Interpreting Station ID: [id number]
== END ==
LOC: MAMMO 12:05
PROVIDERS: PCP Nurse Practitioner Family; Referring Provider Physician Assistant; Visit Provider Physician Assistant
DX: N63.13 Unspecified lump in the right breast, lower outer quadrant (principal); R92.343 Mammographic extreme density, bilateral breasts
CPT/HCPCS: 77066; G0279

== ENCOUNTER → 2024-09-25 15:48 | Outpatient (CLI) | payer OTHER, SELFPAY ==
[2024-08-18 08:37] VITALS: BMI 28.0
--- NOTE | 2024-09-25 15:49 | DI.MRI.S_ITS ---
MR breast BI wo/w con: 09/25/2024. BI-RADS: 2 CLINICAL: 34-year old female for bilateral diagnostic breast MRI that is a follow-up to diagnostic breast ultrasound on 09/08/2024. No personal or first-degree family history of breast cancer. The patient reports pain (less than 1 month) in both breasts. PRIOR EXAMS Mammogram(s): 09/10/2024. Breast Ultrasound(s): 09/08/2024, 09/06/2024. MRI TECHNIQUE Bilateral breast MRI was performed on a 1.5 Cecilia magnet using a dedicated breast coil with mild compression. Axial T1 and T2 STIR sequences were obtained. Dynamic contrast enhanced VIBRANT fat-suppressed sequences were obtained. Delayed sagittal high resolution or sagittal reconstructed isotropic sequence was also obtained. Subtraction images and maximum intensity projection images were obtained. The study was evaluated using [employer] software. Gadavist was injected intravenously: mL. IV Contrast: 20 ml ProHance. FIBROGLANDULAR TISSUE Bilateral: C. Heterogeneous fibroglandular tissue. BACKGROUND PARENCHYMAL ENHANCEMENT Bilateral: Moderate symmetrical background parenchymal enhancement. BREAST FINDINGS Bilateral No suspicious enhancing mass or non-masslike enhancement. Benign-appearing cysts noted. There is no suspicious finding with benign findings noted. CHEST FINDINGS No axillary or internal mammary chain adenopathy. No abnormality seen in the visible portions of the heart, lungs, chest wall, and liver. IMPRESSION: * No evidence of malignancy with benign findings. RECOMMENDATIONS * Recommend routine screening mammogram starting at age 40. Left * Six month followup with diagnostic ultrasound. * Diagnostic ultrasound already scheduled. OVERALL ASSESSMENT CATEGORY BI-RADS-2: Benign. ELECTRONICALLY SIGNED: Michelle Huizar M.D. on 09/29/2024 at 12:43:45 PM PT Interpreting Station ID: [id number]
== END ==
PROVIDERS: PCP Nurse Practitioner Family; Referring Provider Physician Assistant; Visit Provider Physician Assistant
DX: N63.0 Unspecified lump in unspecified breast (principal); R70.0 Elevated erythrocyte sedimentation rate; R79.82 Elevated C-reactive protein (CRP); N64.4 Mastodynia; R92.323 Mammographic fibroglandular density, bilateral breasts
CPT/HCPCS: 77049; A9579

== ENCOUNTER → 2024-10-15 08:28 | Outpatient (CLI) | payer OTHER, SELFPAY ==
[2024-08-18 08:37] VITALS: BMI 28.0
== END ==
PROVIDERS: PCP Nurse Practitioner Family; Visit Provider Nurse Practitioner Family
DX: R30.0 Dysuria (principal)
CPT/HCPCS: 87077; 87086; 87186; 87210

== ENCOUNTER 2024-11-01 16:52 | Emergency (ER) | payer OTHER, SELFPAY ==
[2024-08-18 08:37] VITALS: BMI 28.0
[2024-11-01] VITALS (7 sets, daily range): BP systolic 108–145; BP diastolic 71–86; PULSE 70–100; RESP 18; TEMP 36.8; O2SAT 97–100; BMI 26.2
--- NOTE | 2024-11-01 16:53 | ED.GENADULT ---
HPI - General Adult General Chief complaint: Abdominal Pain Stated complaint: Back Pain Time Seen by Provider: 11/01/24 16:56 History of Present Illness HPI narrative: 34-year-old woman with a history of anxiety, depression, type 2 diabetes, prior kidney stones presents with acute onset of right flank pain 02/12. She states it feels like a prior kidney stone. She states there is a possibility she could be , it would be quite early in the . No recent fevers, chills, chest pain. Related Data Home Medications ?Medication ?Instructions ?Recorded ?Confirmed escitalopram oxalate 20 mg tablet 20 mg PO DAILY 11/22/23 10/15/24 (Lexapro) lamotrigine 100 mg tablet 100 mg PO DAILY 08/06/24 10/15/24 Previous Rx's ?Medication ?Instructions ?Recorded levonorgestrel 120 mcg-e.estradiol 1 patch transdermal Q7D #3 patches 04/09/24 30 mcg/24 hr weekly transderm patch (Twirla) cefdinir 300 mg capsule 300 mg PO BID #10 caps 10/19/24 semaglutide 1 mg/dose (4 mg/3 mL) 1 mg (0.75 mL) SUBCUT QWEEK #3 mL 10/22/24 subcutaneous pen injector (Ozempic) oxycodone-acetaminophen 5 mg-325 1 tab PO Q6H PRN pain #10 tabs 11/01/24 mg tablet tamsulosin 0.4 mg capsule 0.4 mg PO DAILY #10 caps 11/01/24 Allergies Allergy/AdvReac Type Severity Reaction Status Date / Time No Known Drug Allergies Allergy Verified 11/01/24 17:00 Patient History Medical History (Updated 11/01/24 @ 18:31 by Iesha Bardales MD) Elevated sed rate CRP elevated Insomnia Depression Pelvic mass in female Pelvic pain Social History household members: family alcohol intake: never alcohol intake frequency: 0-2 drinks per day Exam Initial Vital Signs Initial Vital Signs: General: Healthy appearing, diaphoretic, in severe pain HEENT: Moist mucous membranes, normal sclera with reactive pupils, Respiratory: Lungs are clear to auscultation, no wheezing no rales no rhonchi. Full and symmetrical air movement Cardiac: Regular rate and rhythm no murmurs no bruits Abdomen: Soft, nontender, no rebound or guarding, no flank pain to palpation Neurologic: Grossly neurologically intact with no obvious asymmetries or abnormalities Extremities: No trauma, well perfused Psych: Cooperative, appropriate insight and affect Medical Decision Making MDM Narrative Medical decision making narrative: 34-year-old woman with severe left-sided flank pain acute onset. Differential includes kidney stone, ovarian torsion, pyelonephritis, diverticulitis. Patient arrives by ambulance is pale diaphoretic and in obvious distress better after pain has been controlled. Labs indicates she is not , does not have an urinary tract infection CT scan shows a left 3 mm UVJ stone with mild hydronephrosis, moderate fecal loading, incidentally appreciated cholelithiasis Patient is re-evaluated and is feeling significantly better. 34-year-old woman with 3 mm left-sided obstructing kidney stone UVJ, she is given saline, Toradol, Dilaudid, oral Flomax and oral Percocet along with a L of fluid. Discussed complications and reasons to return to the emergency department as well as anticipated course of resolution of her overall symptoms. She will be given a prescription for Percocet an additional Flomax until the stone passes. Encouraged more water less soda. There was no indication for additional workup or hospitalization at this time she is safe for discharge Discharge Plan Departure Patient Disposition: Home Clinical Impression: Ureterolithiasis, Bilateral kidney stones, Asymptomatic gallstones Instructions: DI for Kidney Stones Activity Restrictions/Additional Instructions: Thank you for coming in today I am sorry that you are not today. I wish you the best of luck in getting to that in the next month. You do have a kidney stone, 3 mm on the left side almost ready to drop into your bladder. This is the cause of your severe pain. Using 400 mg of ibuprofen (2 akad-kwt-sjlvoba pills) and 1 Tylenol every 6 hours can be very helpful in controlling pain. For severe pain you can use 400 mg of ibuprofen and [address] scan suggests that you are relatively constipated. I would recommend a couple of doses of MiraLax over the next few days and an extra dose of MiraLax every time that you take a dose of Percocet to prevent constipation I have given you a prescription for Flomax. This helps open up the ureter just enough that it helps the stone pass a bit more readily. You can stop this once the pain is resolved or you have seen the stone come out Would strongly recommend increasing your water intake and decreasing your soda intake If you find that you are getting worse or develop any new symptoms, please feel free to return to the emergency department for further evaluation. Prescriptions: New tamsulosin 0.4 mg capsule 0.4 mg PO DAILY Qty: 10 0RF oxycodone-acetaminophen 5-325 mg tablet 1 tab PO Q6H PRN (Reason: pain) Qty: 10 0RF No Action Twirla 120-30 mcg/24 hr patch weekly 1 patch transdermal Q7D Qty: 3 2RF Rx Instructions: apply once weekly for 3 weeks of a 4-week cycle cefdinir 300 mg capsule 300 mg PO BID Qty: 10 0RF Ozempic 1 mg/dose (4 mg/3 mL) pen injector 1 mg SUBCUT QWEEK Qty: 3 0RF escitalopram oxalate [Lexapro] 20 mg tablet 20 mg PO DAILY lamotrigine 100 mg tablet 100 mg PO DAILY Referrals: Cande Kaur FNP-BC [Primary Care Provider, Family Practice] Stand Alone Forms: Patient Portal/API
--- NOTE | 2024-11-01 16:54 | DI.CT.S_ITS ---
PROCEDURE: CT KIDNEY URETER BLADDER (KUB) INDICATIONS: left flank pain TECHNIQUE: Axial sections were acquired from the lung bases to the pubic symphysis. Coronal and sagittal reformats were performed. For radiation dose reduction, the following was used: automated exposure control, adjustment of mA and/or kV according to patient size. COMPARISON: None. FINDINGS: Image quality: Diagnostic Lower chest: Basal atelectasis. Normal heart size. Liver: No contour deforming mass. Solid organs are not well assessed without IV contrast Gallbladder and biliary system: Cholelithiasis, nondilated Pancreas: No ductal dilation Spleen: Small calcified granuloma. Nonenlarged. Adrenals: No discrete nodules Kidneys: 3 mm left UVJ stone with mild upstream hydronephrosis. There are 2 other punctate nonobstructing calculi in the left kidney and 1 punctate nonobstructing calculus in the right upper pole. No right hydronephrosis. No contour deforming solid mass Vessels and lymph nodes: No abdominal aortic aneurysm. No enlarged lymph nodes by size criteria. Bowel and peritoneum: No small bowel obstruction. No drainable abscess or ascites. There are colonic diverticula. No acute focal inflammation. Fecal loading is moderate. No appendix dilation Body wall: Small calcification just deep to the umbilicus. Pelvis: Under distended urinary bladder. Globular appearance of the uterus, which can be a normal variant or represent adenomyosis Bones: No aggressive appearing osseous abnormality. Degenerative changes are present. Suspected lumbosacral transitional anatomy. IMPRESSION: 3 mm left UVJ stone with mild upstream hydronephrosis. Other punctate nonobstructing calculi are seen in both kidneys. Cholelithiasis. Moderate fecal loading. Other findings above. Dictated by: Sushant Hess M.D. on 11/01/2024 at 16:53 Approved by: Sushant Hess M.D. on 11/01/2024 at 16:57
[2024-11-01] MEDS: ONDANSETRON 4 MG/2 ML INJ IV (17:17)
[2024-11-01] MEDS: SODIUM CHLORIDE 0.9% 1,000 ML 1000 ML IV (17:17)
[2024-11-01] MEDS: KETOROLAC 30 MG/ML VIAL 15 MG IV (17:17)
[2024-11-01] MEDS: HYDROMORPHONE 0.5 MG INJ IV (17:27)
[2024-11-01 17:40] LABS: Bacteria Urine None Seen; Culture Indicated Urine Specimen Cultured; RBC Urine 5-10/HPF (0-5/HPF); Squamous Epithelial Cell Urine None Seen (0-5/HPF); Urine Volume 10mL (spun); WBC Urine 5-10/HPF (0-5/HPF)
[2024-11-01] MEDS: TAMSULOSIN 0.4 MG CAPSULE PO (18:40)
[2024-11-01] MEDS: OXYCODONE/APAP 5/325 PREPACK 1 BOTTLE MISC (18:40)
[2024-11-01] MEDS: OXYCODONE/ACETAMINOPHEN 5/325 TABLET 1 TAB PO (18:40)
== END 2024-11-01 18:52 | disposition home or self-care (01) ==
PROVIDERS: Emergency Provider Emergency Medicine; PCP Nurse Practitioner Family
DX: N20.1 Calculus of ureter (principal); N20.0 Calculus of kidney; K80.20 Calculus of gallbladder without cholecystitis without obstruction; Z87.442 Personal history of urinary calculi
CPT/HCPCS: 74176; 81003; 81015; 81025; 87086; 96374; 96375; 99284; J1171; J1885; J2405

== ENCOUNTER → 2024-11-03 19:25 | Outpatient (ROUT) | payer OTHER, SELFPAY ==
[2024-08-18 08:37] VITALS: BMI 28.0
[2024-11-03 19:29] LABS: Appearance Urine UA CLEAR; Bilirubin Urine UA NEGATIVE (NEGATIVE); Color Urine UA YELLOW; Glucose Urine UA NEGATIVE (Negative); Ketones Urine UA NEGATIVE (NEGATIVE); Leukocyte Esterase Urine UA NEGATIVE (NEGATIVE); Nitrite Urine UA NEGATIVE (Negative); Occult Blood Urine UA 3+ (Negative); Protein Urine UA NEGATIVE (Negative); Specific Gravity Urine UA 1.010 (1.000-1.035); Urobilinogen Urine UA 1.0 E.U./dL (0.2)
[2024-11-03 19:30] LABS: pH Urine UA 7.5 (4.5-8.0)
[2024-11-03 19:38] LABS: Culture Indicated Urine Cult Not Indicated
== END ==
PROVIDERS: PCP Nurse Practitioner Family; Visit Provider Physician Assistant
DX: N12 Tubulo-interstitial nephritis, not specified as acute or chronic (principal); R30.0 Dysuria
CPT/HCPCS: 81001

== ENCOUNTER 2025-03-01 18:35 | Emergency (ER) | payer OTHER, SELFPAY ==
[2024-08-18 08:37] VITALS: BMI 28.0
[2025-03-01] VITALS (7 sets, daily range): BP systolic 116–156; BP diastolic 67–87; PULSE 66–83; RESP 17–18; TEMP 36.8; O2SAT 97–100; BMI 28.3
--- NOTE | 2025-03-01 18:45 | DI.US.S_ITS ---
PROCEDURE: US PELVIC COMPLETE INDICATIONS: Left pelvic pain similar to R torsion last yr TECHNIQUE: Real-time scanning was performed of the pelvic organs, with image documentation. Additional endovaginal scanning was necessary due to incomplete visualization of the adnexal and endometrial structures by transabdominal scanning. Doppler and color flow imaging was also performed to evaluate arterial and venous blood flow to the ovaries. COMPARISON: [facility], US, US PELVIC COMPLETE, 02/25/2024, 7:48. FINDINGS: Uterus: Uterus is anteverted and normal in size at 10.3 x 5.1 x 6.9 cm. The myometrium is homogeneous. The endometrium measures 7.7 mm combined thickness. Ovaries: The right ovary is surgically absent. The left ovary measures 3.6 x 4.2 x 2.1 cm, with a calculated ovarian volume of 16.9 cc. The left ovary has a normal sonographic appearance. Less than 12 follicles can be seen in each ovary. There is a left ovarian complex cyst measuring 1.7 x 1.4 x 1.6 cm. Doppler and color flow imaging demonstrates intact arterial and venous blood flow to the left ovary. Other: No pathologic free abdominal or pelvic fluid. IMPRESSION: No sonographic evidence of left ovarian torsion. Complex left ovarian cyst measuring up to 1.7 cm, possible hemorrhagic cyst. Recommend follow-up pelvic ultrasound in 6-12 weeks. Status post right oophorectomy. Approved by: Leonie Trevino M.D.,Ph.D. on 03/01/2025 at 20:19
[2025-03-01 19:06] LABS: Add Manual Diff / Slide Review NO; Hematocrit 43.1 % (36-46); Hemoglobin 14.5 g/dL (12.0-16.0); Lymphocytes Absolute Auto 2700 /uL (1100-4500); Mean Corpuscular HGB Conc 33.7 % (30-36); Mean Corpuscular Hemoglobin 29.9 PG (26-34); Mean Corpuscular Volume 88.6 fL (80-100); Platelet Count 251 X10^3/uL (150-400)
[2025-03-01] MEDS: KETOROLAC 30 MG/ML VIAL 15 MG IV (19:08)
[2025-03-01] MEDS: SODIUM CHLORIDE 0.9% 1,000 ML 1000 ML IV (19:10)
[2025-03-01 19:19] LABS: Alanine Aminotransferase 24 IU/L (<35); Albumin 5.2 g/dL (3.5-5.0); Albumin Globulin Ratio 1.4 (1.0-2.8); Alkaline Phosphatase 62 U/L (38-126); Blood Urea Nitrogen 14 mg/dL (7-17); Calcium 9.7 mg/dL (8.4-10.2); Carbon Dioxide 24 mmol/L (22-32); Chloride 102 mmol/L (98-107); Estimated Glomerular Filt Rate > 60 mL/min (>60); Globulin 3.6 g/dL (1.7-4.1); Glucose 96 mg/dL (70-99); HEMOLYSIS < 15 (0-50); Potassium 3.8 mmol/L (3.4-5.1); Sodium 139 mmol/L (137-145); Total Protein 8.8 g/dL (6.3-8.2)
[2025-03-01 19:22] LABS: Culture Indicated Urine Cult Not Indicated
--- NOTE | 2025-03-01 21:11 | ED_ITS ---
HPI - General Adult General Chief complaint: Urogenital-Female Stated complaint: ovarian pain Time Seen by Provider: 03/01/25 18:41 Source: patient Mode of arrival: Ambulatory History of Present Illness HPI narrative: 35-year-old woman with a history of right ovarian torsion and oophorectomy a year ago presents with the acute onset left lower quadrant/pelvic pain very similar to that which led to the oophorectomy. Increasing over the course of the day. She has not taken any ibuprofen or Tylenol. No dysuria, vaginal discharge, flank pain, fevers, nausea, vomiting, palpitations, chest pain or cough Related Data Home Medications ?Medication ?Instructions ?Recorded ?Confirmed escitalopram oxalate 20 mg tablet 20 mg PO DAILY 11/2111/05/24 (Lexapro) Previous Rx's ?Medication ?Instructions ?Recorded oxycodone-acetaminophen 5 mg-325 1 tab PO Q6H PRN pain #10 tabs 11/01/24 mg tablet ciprofloxacin HCl 500 mg tablet 500 mg PO BID #14 tabs 11/03/24 ondansetron 4 mg disintegrating 4 mg PO Q8H PRN nausea and 11/03/24 tablet vomiting #20 tabs tamsulosin 0.4 mg capsule See Rx Instructions PO DAILY #10 12/14/24 caps Allergies Allergy/AdvReac Type Severity Reaction Status Date / Time No Known Drug Allergies Allergy Verified 11/05/24 09:38 Review of Systems Review of Systems Narrative: Pertinent positive and negative findings as per HPI Patient History Medical History Kidney stone on left side Elevated sed rate CRP elevated Insomnia Depression Pelvic mass in female Pelvic pain Social History household members: family Smoking Status: Never smoker alcohol intake: never Smoking Status: Never smoker alcohol intake frequency: 0-2 drinks per day Exam Initial Vital Signs Initial Vital Signs: Vital Signs Temperature 98.3 F 03/01/25 18:38 Pulse Rate 81 03/01/25 18:38 Respiratory Rate 17 03/01/25 18:38 Blood Pressure 156/85 H 03/01/25 18:38 Pulse Oximetry 100 03/01/25 18:38 Oxygen Delivery Method Room Air 03/01/25 18:38 General: Healthy appearing, mild pain but Able to give a complete and coherent history. Well-nourished well-developed HEENT: Moist mucous membranes, normal sclera with reactive pupils, Respiratory: Lungs are clear to auscultation, no wheezing no rales no rhonchi. Full and symmetrical air movement Cardiac: Regular rate and rhythm no murmurs no bruits Abdomen: Soft, tender into the left lower quadrant without suprapubic tenderness, no flank pain. She does not have rebound or guarding Skin: Warm and dry, no rashes Neurologic: Grossly neurologically intact with no obvious asymmetries or abnormalities Extremities: No trauma, well perfused Psych: Cooperative, appropriate insight and affect Course Orders Ordered: ED Orders 03/01/25 18:45 US pelvic complete Stat 03/01/25 18:51 Urine Culture Stat Urine Microscopic Stat 03/01/25 19:00 Complete Blood Count AUTO DIFF Stat Comprehensive Metabolic Panel Stat Discontinued Medications Hydromorphone HCl (Hydromorphone Hcl 0.5 Mg/0.5 Ml Syringe) 0.5 mg IV NOW ONE Stop: 03/01/25 18:46 Last Admin: 03/01/25 19:09 Dose: 0.5 mg Documented By: ABIOLA Sodium Chloride (Normal Saline 0.9%) 1,000 mls @ 1,000 mls/hr IV BOLUS ONE Stop: 03/01/25 19:44 Last Infusion: 03/01/25 20:27 Dose: Infused Documented By: Admin: 03/01/25 19:10 Dose: 1,000 mls/hr Documented By: ABIOLA Ketorolac Tromethamine (Ketorolac 30 Mg/Ml Vial) 15 mg IV NOW ONE Stop: 03/01/25 18:46 Last Admin: 03/01/25 19:08 Dose: 15 mg Documented By: ABIOLA Vital Signs Vital signs: Vital Signs - 8 hr 03/01/25 18:38 03/01/25 18:58 03/01/25 18:58 Temperature 98.3 F Pulse Rate 81 83 Respiratory Rate 17 Blood Pressure 156/85 H 133/86 Pulse Oximetry 100 99 Oxygen Delivery Method Room Air 03/01/25 19:00 03/01/25 19:00 Temperature Pulse Rate 79 Respiratory Rate 17 Blood Pressure 130/87 Pulse Oximetry 97 Oxygen Delivery Method Room Air Medical Decision Making Lab Data 03/01/25 19:00 03/01/25 19:00 Labs: Lab Results 03/01/25 03/01/25 Range/Units 18:51 19:00 WBC 7.9 (4.5-11.0) X10^3/uL RBC 4.86 (4.0-5.2) X10^6/uL Hgb 14.5 (12.0-16.0) g/dL Hct 43.1 (36-46) % MCV 88.6 (80-100) fL MCH 29.9 (26-34) PG MCHC 33.7 (30-36) % RDW 13.2 (11.6-14.8) % Plt Count 251 (150-400) X10^3/uL Neut % (Auto) 58.5 (50-75) % Lymph % (Auto) 34.4 (25-40) % [place] % (Auto) 6.2 (3-14) % Eos % (Auto) 0.5 L (2-4) % Baso % (Auto) 0.4 (0-2) % Neut # (Auto) 4600 (6237-3006) /uL Lymph # (Auto) 2700 (9264-5431) /uL [place] # (Auto) 500 (0-900) /uL Eos # (Auto) 0 (0-450) /uL Baso # (Auto) 0 (0-100) /uL Sodium 139 (137-145) mmol/L Potassium 3.8 (3.4-5.1) mmol/L Chloride 102 (98-107) mmol/L Carbon Dioxide 24 (22-32) mmol/L BUN 14 (7-17) mg/dL Creatinine 1.01 (0.52-1.04) mg/dL Estimated GFR > 60 (>60) mL/min BUN/Creatinine Ratio 13.9 (6-22) Glucose 96 (70-99) mg/dL Calcium 9.7 (8.4-10.2) mg/dL Total Bilirubin 0.7 (0.2-1.3) mg/dL AST 29 (14-36) IU/L ALT 24 (<35) IU/L Alkaline Phosphatase 62 (38-126) U/L Total Protein 8.8 H (6.3-8.2) g/dL Albumin 5.2 H (3.5-5.0) g/dL Globulin 3.6 (1.7-4.1) g/dL Albumin/Globulin Ratio 1.4 (1.0-2.8) Urine RBC 1-5/hpf D (0-5/HPF) Urine WBC None seen (0-5/HPF) Ur Squamous Epith Cells 0-1 /hpf (0-5/HPF) Urine Bacteria None seen (None) Urine Yeast 0-1/hpf (None) Ur Culture Indicated? Cult not indicated Vol Urine Centrifuged 10ml (spun) Point of Care Testing Test Results Negative Urine Dip Bedside Urine Glucose Negative Bedside Urine Bilirubin - Negative Bedside Urine Ketone - Negative Urine Specific [place] 1.015 Bedside Urine Occult Blood ++ Bedside Urine pH 6.5 Bedside Urine Protein - Negative Bedside Urine Urobilinogen - Negative Bedside Urine Nitrite - Negative Bedside Urine Leukocytes - Negative Esterase Point of care testing: Point of Care Testing Test Results Negative Urine Dip Bedside Urine Glucose Negative Bedside Urine Bilirubin - Negative Bedside Urine Ketone - Negative Urine Specific [place] 1.015 Bedside Urine Occult Blood ++ Bedside Urine pH 6.5 Bedside Urine Protein - Negative Bedside Urine Urobilinogen - Negative Bedside Urine Nitrite - Negative Bedside Urine Leukocytes - Negative Esterase [facility] Narrative Medical decision making narrative: 35-year-old woman presents with acute left lower pelvic/quadrant pain starting this morning. She had similar pain about a year ago that ended up being a right ovarian torsion. She does not describe fevers or dysuria. Workup shows no abnormalities in her urine to suggest urinary tract infection or kidney stone CBC does not suggest infection or acute bleeding/anemia Chemistries show no kidney abnormalities no liver abnormalities. Electrolytes are appropriate Patient is not Pelvic ultrasound shows good flow to the left ovary but she does have a small complex cyst, possible hemorrhagic Patient was treated with Toradol, Dilaudid given oral Percocet. Pain is significantly improved. At this point I suspect that the pain is related to the possible hemorrhagic cyst in the remaining left ovary. Intermittent torsion remains within the differential. She is not this is not an ectopic or complications thereof. I am seeing no signs of pelvic inflammatory disease or other infection. No renal dysfunction kidney stones. Findings reviewed with the patient, recommended follow up with her OBGYN, ibuprofen and Tylenol for pain and she has given for Percocet to use if the pain is significant. Questions are answered and she is safely discharge Discharge Plan Departure Patient Disposition: Home Clinical Impression: Left-sided pelvic pain Ovarian cyst Qualifiers: Laterality: left Qualified Code(s): N83.202 - Unspecified ovarian cyst, left side Instructions: DI for Ovarian Cyst Activity Restrictions/Additional Instructions: Thank you for coming in today Your workup was quite reassuring. I do not see signs of infection, urinary tract infection, kidney stones, you are not this is not an ectopic complication The ultrasound showed good blood flow to the left ovary. There is a cyst that is described as complex measuring approximately 1.5 x 1.5 x 1.5 cm. This may be a hemorrhagic cyst, meaning there is bleeding into the cyst. This may be the source of your pain. There is no continued bleeding and it is safe for discharge home. Using 400 mg of ibuprofen (2 [id number] pills) and 1 Tylenol every 6 hours can be very helpful in controlling pain. For severe pain you can add 1 Percocet to this combination. Please do call Dr. Arzate's office to schedule a follow up appointment. If you find that you are getting worse or develop any new symptoms, please feel free to return to the emergency department for further evaluation. Prescriptions: No Action tamsulosin 0.4 mg capsule See Rx Instructions PO DAILY Qty: 10 0RF Rx Instructions: orally daily; take 1-2 tablets escitalopram oxalate [Lexapro] 20 mg tablet 20 mg PO DAILY ciprofloxacin HCl 500 mg tablet 500 mg PO BID Qty: 14 0RF ondansetron 4 mg tablet,disintegrating 4 mg PO Q8H PRN (Reason: nausea and vomiting) Qty: 20 0RF oxycodone-acetaminophen 5-325 mg tablet 1 tab PO Q6H PRN (Reason: pain) Qty: 10 0RF Referrals: Cande Kaur FNP-BC [Primary Care Provider, Family Practice] Stand Alone Forms: Patient Portal/API
== END 2025-03-01 21:36 | disposition home or self-care (01) ==
PROVIDERS: Emergency Provider Emergency Medicine; PCP Nurse Practitioner Family
DX: R10.22 Pelvic and perineal pain left side (principal); N83.202 Unspecified ovarian cyst, left side
CPT/HCPCS: 36415; 76830; 76856; 80053; 81003; 81015; 81025; 85025; 87086; 93976; 96361; 96374; 96375; 99284; J1171; J1885; J7030

== ENCOUNTER 2025-03-03 15:39 | Emergency (ER) | payer OTHER, SELFPAY ==
[2024-08-18 08:37] VITALS: BMI 28.0
[2025-03-03 15:49] VITALS: BP 121/66; PULSE 84; RESP 18; TEMP 37.2; O2SAT 99; BMI 28.3
--- NOTE | 2025-03-03 16:27 | DI.US.S_ITS ---
PROCEDURE: US PELVIC COMPLETE INDICATIONS: L sided pelvic pain, positive beta HCG TECHNIQUE: Real-time scanning was performed of the pelvic organs, with image documentation. Additional endovaginal scanning was necessary due to incomplete visualization of the adnexal and endometrial structures by transabdominal scanning. COMPARISON: [facility], US, US PELVIC COMPLETE, 03/01/2025, 19:26. FINDINGS: Uterus: Uterus is anteverted and normal in size at 10.6 x 5.2 x 6.5 cm. The myometrium is homogeneous. The endometrium measures 10.2 mm combined thickness. No intrauterine gestation visualized. Ovaries: The right is surgically absent. The left ovary measures 3.2 x 2.7 x 3.9 cm, with a calculated ovarian volume of 17.2 cc. The left ovary has a normal sonographic appearance. Less than 12 follicles can be seen in the left ovary. There is a complex left ovarian cystic structure with rim enhancement measuring 2.1 x 1.4 x 2.0 cm. . Other: No pathologic free abdominal or pelvic fluid. IMPRESSION: No intrauterine gestation visualized. Rim enhancing left ovarian cystic structure measuring 2.1 cm. In the setting of positive beta HCG, ectopic cannot be excluded. No free fluid visualized. Status post right oophorectomy. Approved by: Leonie Trevino M.D.,Ph.D. on 03/03/2025 at 18:44
--- NOTE | 2025-03-03 16:36 | ED_ITS ---
HPI - Abdominal Pain <Clive Herbert PA-C - Last Filed: 03/03/25 19:13> General Chief Complaint: Abdominal Pain Stated Complaint: Lt ovarian pain Time Seen by Provider: 03/03/25 16:08 Source: patient Mode of arrival: Ambulatory History of Present Illness HPI narrative: 35-year-old female with past medical history ovarian torsion, diabetes, ovarian cysts, status post right oophorectomy presents to the ED with worsening left pelvic pain. Patient was seen in the ED 2 days ago for the same complaint, states that her pain has worsened since then. Endorses slight nausea. No fever, chills, chest pain, shortness of breath, vomiting, dysuria, lightheadedness, dizziness, syncope, vaginal bleeding. LMP was 02/02/2025. Related Data Home Medications ?Medication ?Instructions ?Recorded ?Confirmed escitalopram oxalate 20 mg tablet 20 mg PO DAILY 11/2111/05/24 (Lexapro) Previous Rx's ?Medication ?Instructions ?Recorded oxycodone-acetaminophen 5 mg-325 1 tab PO Q6H PRN pain #10 tabs 11/01/24 mg tablet ciprofloxacin HCl 500 mg tablet 500 mg PO BID #14 tabs 11/03/24 ondansetron 4 mg disintegrating 4 mg PO Q8H PRN nausea and 11/03/24 tablet vomiting #20 tabs tamsulosin 0.4 mg capsule See Rx Instructions PO DAILY #10 12/14/24 caps Allergies Allergy/AdvReac Type Severity Reaction Status Date / Time No Known Drug Allergies Allergy Verified 11/05/24 09:38 <Atif Fregoso MD - Last Filed: 03/04/25 04:59> History of Present Illness HPI narrative: 35-year-old female with past medical history of ovarian torsion, diabetes, ovarian cysts, status post right oophorectomy presents to the ED with worsening left pelvic pain. Patient was seen in the ED 2 days ago for the same complaint, states that her pain has worsened since then. Endorses slight nausea. No fever, chills, chest pain, shortness of breath, vomiting, dysuria, lightheadedness, dizziness, syncope, vaginal bleeding. LMP was 02/02/2025. Review of Systems <Clive Herbert PA-C - Last Filed: 03/03/25 19:13> Constitutional Constitutional: Denies chills, Denies fatigue, Denies fever(s), Denies frequent falls, Denies lethargy and Denies weakness Eyes Eyes: Denies change in vision, Denies eye discharge, Denies irritation and Denies loss of vision ENT Ears, Nose, Mouth, and Throat: Denies change in voice, Denies dizziness, Denies neck pain, Denies sore throat and Denies throat swelling Cardiovascular Cardiovascular: Denies chest pain, Denies irregular heart rhythm, Denies lightheadedness, Denies palpitations, Denies dyspnea, Denies dyspnea on exertion and Denies orthopnea Respiratory Respiratory: Denies cough, Denies dyspnea, Denies dyspnea on exertion and Denies wheezing Gastrointestinal Gastrointestinal: Denies abdominal pain, Denies change in bowel habits, Denies diarrhea, Reports nausea and Denies vomiting Genitourinary Genitourinary: Reports pelvic pain (left) Musculoskeletal Musculoskeletal: Denies neck pain and Denies numbness Integumentary/Breasts Skin/Breast: Denies pruritus, Denies erythema, Denies rash and Denies wounds Neurologic Neurologic: Denies behavioral changes, Denies confusion, Denies dizziness, Denies frequent falls, Denies loss of vision, Denies numbness and Denies weakness Psychiatric Psychiatric: Denies anxiety, Denies behavioral changes, Denies confusion, Denies depression, Denies homicidal ideation and Denies suicidal ideation Endocrine Endocrine: Denies fatigue, Denies flushing and Denies palpitations Hematologic/Lymphatic Hematologic/Lymphatic: Denies easy bruising Allergic/Immunologic Allergic/Immunologic: Denies urticaria, Denies throat swelling and Denies wheezing Patient History <Clive Herbert PA-C - Last Filed: 03/03/25 19:13> Medical History Kidney stone on left side Elevated sed rate CRP elevated Insomnia Depression Pelvic mass in female Pelvic pain Social History household members: family Smoking Status: Never smoker alcohol intake: never Smoking Status: Never smoker alcohol intake frequency: 0-2 drinks per day Exam <Clive Herbert PA-C - Last Filed: 03/03/25 19:13> Narrative Exam Narrative: Const General:?cooperative, healthy appearing and comfortable HENKY Head:?normal to inspection Ears:?hearing grossly normal bilaterally Nose:?external nose normal Face and sinus:?normal facial exam and sinuses nontender Mouth:?oral mucosae normal Throat:?posterior oropharynx normal Eyes General:?appearance normal, both eyes and all related structures Neck Neck:?normal visual inspection and no lymphadenopathy noted Resp Effort & Inspection:?normal respiratory effort Auscultation:?clear to auscultation bilaterally Cardio Rate:?regular rate Rhythm:?regular rhythm GI/ Left pelvic region tender to palpation. Abdomen is soft, nondistended. exam deferred. Neuro General:?patient alert, patient awake and patient oriented x3 Initial Vital Signs Initial Vital Signs: Vital Signs Temperature 99 F 03/03/25 15:49 Pulse Rate 84 03/03/25 15:49 Respiratory Rate 18 03/03/25 15:49 Blood Pressure 121/66 03/03/25 15:49 Pulse Oximetry 99 03/03/25 15:49 Oxygen Delivery Method Room Air 03/03/25 15:49 <Atif Fregoso MD - Last Filed: 03/04/25 04:59> Initial Vital Signs Initial Vital Signs: Vital Signs Temperature 99 F 03/03/25 15:49 Pulse Rate 84 03/03/25 15:49 Respiratory Rate 18 03/03/25 15:49 Blood Pressure 121/66 03/03/25 15:49 Pulse Oximetry 99 03/03/25 15:49 Oxygen Delivery Method Room Air 03/03/25 15:49 Course <Clive Herbert PA-C - Last Filed: 03/03/25 19:13> Orders Ordered: Discontinued Medications Hydromorphone HCl (Hydromorphone 1 Mg/Ml Syringe) 1 mg IV NOW ONE Stop: 03/03/25 16:32 Last Admin: 03/03/25 17:04 Dose: 1 mg Documented By: FADY Hydromorphone HCl (Hydromorphone 1 Mg/Ml Syringe) 1 mg IV NOW ONE Stop: 03/03/25 21:05 Last Admin: 03/03/25 21:17 Dose: 1 mg Documented By: FADY Vital Signs Vital signs: Vital Signs - 8 hr 03/03/25 22:32 Pulse Rate 59 L Respiratory Rate 16 Blood Pressure 118/72 Pulse Oximetry 99 Oxygen Delivery Method Room Air <Atif Fregoso MD - Last Filed: 03/04/25 04:59> Orders Ordered: Discontinued Medications Hydromorphone HCl (Hydromorphone 1 Mg/Ml Syringe) 1 mg IV NOW ONE Stop: 03/03/25 16:32 Last Admin: 03/03/25 17:04 Dose: 1 mg Documented By: FADY Hydromorphone HCl (Hydromorphone 1 Mg/Ml Syringe) 1 mg IV NOW ONE Stop: 03/03/25 21:05 Last Admin: 03/03/25 21:17 Dose: 1 mg Documented By: FADY Vital Signs Vital signs: Vital Signs - 8 hr 03/03/25 22:32 Pulse Rate 59 L Respiratory Rate 16 Blood Pressure 118/72 Pulse Oximetry 99 Oxygen Delivery Method Room Air MDM - Abdominal Pain <Clive Herbert PA-C - Last Filed: 03/03/25 19:13> Lab Data 03/03/25 16:45 03/03/25 16:45 Labs: Lab Results 03/03/25 03/03/25 Range/Units 16:34 16:45 WBC 7.2 (4.5-11.0) X10^3/uL RBC 4.31 (4.0-5.2) X10^6/uL Hgb 13.1 (12.0-16.0) g/dL Hct 38.0 (36-46) % MCV 88.2 (80-100) fL MCH 30.4 (26-34) PG MCHC 34.4 (30-36) % RDW 13.4 (11.6-14.8) % Plt Count 220 (150-400) X10^3/uL Neut % (Auto) 65.2 (50-75) % Lymph % (Auto) 26.8 (25-40) % [place] % (Auto) 6.8 (3-14) % Eos % (Auto) 0.6 L (2-4) % Baso % (Auto) 0.6 (0-2) % Neut # (Auto) 4700 (9563-7151) /uL Lymph # (Auto) 1900 (9426-3081) /uL [place] # (Auto) 500 (0-900) /uL Eos # (Auto) 0 (0-450) /uL Baso # (Auto) 0 (0-100) /uL Sodium 136 L (137-145) mmol/L Potassium 3.9 (3.4-5.1) mmol/L Chloride 104 (98-107) mmol/L Carbon Dioxide 24 (22-32) mmol/L BUN 12 (7-17) mg/dL Creatinine 0.91 (0.52-1.04) mg/dL Estimated GFR > 60 (>60) mL/min BUN/Creatinine Ratio 13.2 (6-22) Glucose 92 (70-99) mg/dL Calcium 8.5 (8.4-10.2) mg/dL Total Bilirubin 0.6 (0.2-1.3) mg/dL AST 25 (14-36) IU/L ALT 21 (<35) IU/L Alkaline Phosphatase 56 (38-126) U/L Total Protein 7.3 (6.3-8.2) g/dL Albumin 4.4 (3.5-5.0) g/dL Globulin 2.9 (1.7-4.1) g/dL Albumin/Globulin Ratio 1.5 (1.0-2.8) Lipase 206 (23-300) U/L HCG, Quant 62.42 mIU/mL Urine RBC 0-1/hpf (0-5/HPF) Urine WBC 0-1/hpf (0-5/HPF) Ur Squamous Epith Cells 1-5 /hpf (0-5/HPF) Ur Transition Epith Cell 0-1/hpf (0-5/HPF) Amorphous Sediment 1+ Urine Bacteria None seen (None) Ur Culture Indicated? Cult not indicated Vol Urine Centrifuged 10ml (spun) Point of care testing: Point of Care Testing Test Results Positive Urine Dip Bedside Urine Glucose Negative Bedside Urine Bilirubin - Negative Bedside Urine Ketone - Negative Urine Specific [place] 1.010 Bedside Urine Occult Blood + Bedside Urine pH 7.5 Bedside Urine Protein - Negative Bedside Urine Urobilinogen - Negative Bedside Urine Nitrite - Negative Bedside Urine Leukocytes - Negative Esterase MDM Narrative Medical decision making narrative: 35-year-old female with past medical history ovarian torsion, diabetes, ovarian cysts, status post right oophorectomy presents to the ED with worsening left pelvic pain. Concern for ovarian torsion versus hemorrhagic cyst versus IUP versus ectopic versus other intra-abdominal pathology versus other. Will obtain labs, urine, urine hCG, pelvic ultrasound. Will treat pain with Dilaudid. Will reassess. HCG is positive at 62.42. Labs otherwise within normal limits. Ultrasound shows no intrauterine gestation visualized. Rim enhancing left ovarian cystic structure measuring 2.1 cm. In the setting of positive beta hCG, ectopic can not be excluded. No free fluid visualized. Status post right oophorectomy. MR has been ordered, patient to get an MRI later tonight. Findings and plan discussed with patient. Patient is signed out to Dr. Atif Fregoso. Medical records reviewed: Yes <Atif Fregoso MD - Last Filed: 03/04/25 04:59> Lab Data Labs: Lab Results 03/03/25 03/03/25 Range/Units 16:34 16:45 WBC 7.2 (4.5-11.0) X10^3/uL RBC 4.31 (4.0-5.2) X10^6/uL Hgb 13.1 (12.0-16.0) g/dL Hct 38.0 (36-46) % MCV 88.2 (80-100) fL MCH 30.4 (26-34) PG MCHC 34.4 (30-36) % RDW 13.4 (11.6-14.8) % Plt Count 220 (150-400) X10^3/uL Neut % (Auto) 65.2 (50-75) % Lymph % (Auto) 26.8 (25-40) % [place] % (Auto) 6.8 (3-14) % Eos % (Auto) 0.6 L (2-4) % Baso % (Auto) 0.6 (0-2) % Neut # (Auto) 4700 (6589-0885) /uL Lymph # (Auto) 1900 (3109-9865) /uL [place] # (Auto) 500 (0-900) /uL Eos # (Auto) 0 (0-450) /uL Baso # (Auto) 0 (0-100) /uL Sodium 136 L (137-145) mmol/L Potassium 3.9 (3.4-5.1) mmol/L Chloride 104 (98-107) mmol/L Carbon Dioxide 24 (22-32) mmol/L BUN 12 (7-17) mg/dL Creatinine 0.91 (0.52-1.04) mg/dL Estimated GFR > 60 (>60) mL/min BUN/Creatinine Ratio 13.2 (6-22) Glucose 92 (70-99) mg/dL Calcium 8.5 (8.4-10.2) mg/dL Total Bilirubin 0.6 (0.2-1.3) mg/dL AST 25 (14-36) IU/L ALT 21 (<35) IU/L Alkaline Phosphatase 56 (38-126) U/L Total Protein 7.3 (6.3-8.2) g/dL Albumin 4.4 (3.5-5.0) g/dL Globulin 2.9 (1.7-4.1) g/dL Albumin/Globulin Ratio 1.5 (1.0-2.8) Lipase 206 (23-300) U/L HCG, Quant 62.42 mIU/mL Urine RBC 0-1/hpf (0-5/HPF) Urine WBC 0-1/hpf (0-5/HPF) Ur Squamous Epith Cells 1-5 /hpf (0-5/HPF) Ur Transition Epith Cell 0-1/hpf (0-5/HPF) Amorphous Sediment 1+ Urine Bacteria None seen (None) Ur Culture Indicated? Cult not indicated Vol Urine Centrifuged 10ml (spun) Point of care testing: Point of Care Testing Test Results Positive Urine Dip Bedside Urine Glucose Negative Bedside Urine Bilirubin - Negative Bedside Urine Ketone - Negative Urine Specific [place] 1.010 Bedside Urine Occult Blood + Bedside Urine pH 7.5 Bedside Urine Protein - Negative Bedside Urine Urobilinogen - Negative Bedside Urine Nitrite - Negative Bedside Urine Leukocytes - Negative Esterase MDM Narrative Medical decision making narrative: 35-year-old female with past medical history ovarian torsion, diabetes, ovarian cysts, status post right oophorectomy presents to the ED with worsening left pelvic pain. Concern for ovarian torsion versus hemorrhagic cyst versus IUP versus ectopic versus other intra-abdominal pathology versus other. Will obtain labs, urine, urine hCG, pelvic ultrasound. Will treat pain with Dilaudid. Will reassess. HCG is positive at 62.42. Labs otherwise within normal limits. Ultrasound shows no intrauterine gestation visualized. Rim enhancing left ovarian cystic structure measuring 2.1 cm. In the setting of positive beta hCG, ectopic can not be excluded. No free fluid visualized. Status post right oophorectomy. MR has been ordered, patient to get an MRI later tonight. Findings and plan discussed with patient. Patient is signed out to Dr. Atif Fregoso. Pelvis MRI showed a left ovarian lesion most likely corpus luteal cyst. No intrauterine . No other candidate lesion for ectopic . Short-term follow up suggested. Medical records reviewed: Yes Discharge Plan Departure Patient Disposition: Home Clinical Impression: Ovarian cyst Qualifiers: Laterality: left Qualified Code(s): N83.202 - Unspecified ovarian cyst, left side Instructions: DI for Ovarian Cyst Activity Restrictions/Additional Instructions: Follow up with OB this week. No sign of ectopic today on the pelvic ultrasound. Follow up sooner if pain worsens. Prescriptions: No Action tamsulosin 0.4 mg capsule See Rx Instructions PO DAILY Qty: 10 0RF Rx Instructions: orally daily; take 1-2 tablets escitalopram oxalate [Lexapro] 20 mg tablet 20 mg PO DAILY ciprofloxacin HCl 500 mg tablet 500 mg PO BID Qty: 14 0RF ondansetron 4 mg tablet,disintegrating 4 mg PO Q8H PRN (Reason: nausea and vomiting) Qty: 20 0RF oxycodone-acetaminophen 5-325 mg tablet 1 tab PO Q6H PRN (Reason: pain) Qty: 10 0RF Referrals: Cande Kaur FNP-BC [Primary Care Provider, Family Practice] Stand Alone Forms: Patient Portal/API
[2025-03-03 16:58] LABS: Culture Indicated Urine Cult Not Indicated
[2025-03-03 17:00] LABS: Add Manual Diff / Slide Review NO; Hematocrit 38.0 % (36-46); Hemoglobin 13.1 g/dL (12.0-16.0); Lymphocytes Absolute Auto 1900 /uL (1100-4500); Mean Corpuscular HGB Conc 34.4 % (30-36); Mean Corpuscular Hemoglobin 30.4 PG (26-34); Mean Corpuscular Volume 88.2 fL (80-100); Platelet Count 220 X10^3/uL (150-400)
[2025-03-03 17:07] LABS: Alanine Aminotransferase 21 IU/L (<35); Albumin 4.4 g/dL (3.5-5.0); Albumin Globulin Ratio 1.5 (1.0-2.8); Alkaline Phosphatase 56 U/L (38-126); Blood Urea Nitrogen 12 mg/dL (7-17); Calcium 8.5 mg/dL (8.4-10.2); Carbon Dioxide 24 mmol/L (22-32); Chloride 104 mmol/L (98-107); Estimated Glomerular Filt Rate > 60 mL/min (>60); Globulin 2.9 g/dL (1.7-4.1); Glucose 92 mg/dL (70-99); HEMOLYSIS < 15 (0-50); Lipase 206 U/L (23-300); Potassium 3.9 mmol/L (3.4-5.1); Sodium 136 mmol/L (137-145); Total Protein 7.3 g/dL (6.3-8.2)
[2025-03-03 17:36] LABS: HCG Quantitative /Beta subunit 62.42 mIU/mL
--- NOTE | 2025-03-03 18:07 | DI.MRI.S_ITS ---
PROCEDURE: MR PELVIS WO CON INDICATIONS: ?ectopic TECHNIQUE: Noncontrast coronal, axial, and sagittal HASTE, axial HASTE with fat saturation, axial 2-D FLASH in- and [id number], axial 2-D time of flight, axial diffusion and ADC from the kidneys to the symphysis. COMPARISON: [facility], , PELVIC COMPLETE, 03/03/2025, 17:52. FINDINGS: Image quality: Excellent. Bowel: No pathologic free fluid. Visualized small and large bowel loops are normal in caliber. No asymmetric soft tissue edema in the right lower quadrant to suggest acute appendicitis. Normal appendix. Genitourinary system: Kidneys are normal in size. Bladder wall thickness is normal. Enlarged left ovary with multiple normal follicles and thick walled fluid containing lesion measuring approximately 1.5 x 1.3 x 1.3 cm. No abnormally dilated fallopian tube. Right ovary not identified. Trace free fluid, simple in the pelvis. Soft tissues: No ventral or inguinal hernias. Bones: Marrow has normal overall signal. Other: Contracted gallbladder containing stones. No biliary duct dilation. IMPRESSION: Left ovarian lesion most likely corpus luteal cyst. No intrauterine . No other candidate lesion for ectopic . Short-term follow-up suggested. Normal appendix. Cholelithiasis. Dictated by: Royal Peoples M.D. on 03/03/2025 at 20:57 Approved by: Royal Peoples M.D. on 03/03/2025 at 21:18
[2025-03-03 22:32] VITALS: BP 118/72; PULSE 59; RESP 16; O2SAT 99
== END 2025-03-03 22:33 | disposition home or self-care (01) ==
PROVIDERS: Student in an Organized Health Care Education/Training Program; Emergency Provider Family Medicine; PCP Nurse Practitioner Family
DX: N83.202 Unspecified ovarian cyst, left side (principal); Z90.721 Acquired absence of ovaries, unilateral; Z87.42 Personal history of other diseases of the female genital tract
CPT/HCPCS: 36415; 72195; 76830; 76856; 80053; 81003; 81015; 81025; 83690; 84702; 85025; 93976; 96374; 96375; 99284; J1171

== ENCOUNTER → 2025-03-05 08:32 | Outpatient (CLI) | payer OTHER, SELFPAY ==
[2024-08-18 08:37] VITALS: BMI 28.0
[2025-03-05 09:26] LABS: HCG Quantitative /Beta subunit 147.09 mIU/mL
== END ==
PROVIDERS: PCP Nurse Practitioner Family; Referring Provider Obstetrics & Gynecology; Visit Provider Obstetrics & Gynecology
DX: O36.80X0 Pregnancy with inconclusive fetal viability, not applicable or unspecified (principal)
CPT/HCPCS: 36415; 84702

== ENCOUNTER → 2025-03-08 14:46 | Outpatient (CLI) | payer OTHER, SELFPAY ==
[2024-08-18 08:37] VITALS: BMI 28.0
[2025-03-08 16:31] LABS: HCG Quantitative /Beta subunit 518.10 mIU/mL
== END ==
PROVIDERS: PCP Nurse Practitioner Family; Referring Provider Obstetrics & Gynecology; Visit Provider Obstetrics & Gynecology
DX: O36.80X0 Pregnancy with inconclusive fetal viability, not applicable or unspecified (principal)
CPT/HCPCS: 36415; 84702

== ENCOUNTER 2025-04-19 12:32 | Emergency (ER) | payer OTHER, SELFPAY ==
[2024-08-18 08:37] VITALS: BMI 28.0
[2025-04-19 12:37] VITALS: BP 133/63; PULSE 79; RESP 18; TEMP 36.8; O2SAT 100; BMI 28.3
--- NOTE | 2025-04-19 12:46 | ED.GENADULT ---
HPI - General Adult General Chief complaint: Upper Respiratory Symptoms Stated complaint: SOB 3 DAYS 11 weeks Time Seen by Provider: 04/19/25 12:37 Source: patient, RN notes reviewed and old records reviewed Mode of arrival: Ambulatory Limitations: no limitations History of Present Illness HPI narrative: 35-year-old female proximally 11 weeks history of diabetes on metformin presents with complaint of cough for the past week, patient states she has not had any nasal congestion no fevers. She states she has felt sort of out of it and had trouble focusing on other people. She denies any chest pain accept when she coughs. She states maybe some mild shortness of breath particularly with exertion, no orthopnea. She has had a nonproductive cough that has not been improving. She has had nausea but no vomiting. She notes decreased appetite, she has not been drinking as much although she did have a the G drink this morning diarrhea or constipation, no dysuria urgency or frequency. No new swelling in extremities. She states Lexapro and metformin her only daily medications. She had a right ovarian surgery last year in his had a prior . No tobacco, alcohol or recreational drugs. She has care through Dr. Naik at [facility] Related Data Home Medications ?Medication ?Instructions ?Recorded ?Confirmed escitalopram oxalate 20 mg tablet 20 mg PO DAILY 11/22/23 04/07/25 (Lexapro) metformin 500 mg tablet 500 mg PO DAILY Diabetes 04/07/25 04/07/25 vitamin-ferrous sulfate tab PO 04/07/25 04/07/25 27 mg iron-folic acid 0.8 mg tablet Previous Rx's ?Medication ?Instructions ?Recorded ondansetron 4 mg disintegrating 4 mg PO Q8H PRN nausea and 11/03/24 tablet vomiting #20 tabs doxylamine succinate 25 mg tablet 25 mg PO BEDTIME #60 tabs 03/31/25 (Unisom (doxylamine)) pyridoxine (vitamin B6) 25 mg 25 mg PO BID #60 tabs 03/31/25 tablet Allergies Allergy/AdvReac Type Severity Reaction Status Date / Time No Known Drug Allergies Allergy Verified 04/19/25 12:37 Review of Systems Review of Systems ROS Unobtainable: All systems reviewed & are unremarkable except as noted in HPI and below Patient History Medical History Fever Abnormal Pap smear of cervix Pelvic mass in female Pelvic pain Surgical History [place] teeth removed (05/06/03) History of right oophorectomy (~03/2024) History of section (02/18/14) S/P laparoscopic surgery Family History Mother Hypertension Liver failure Stroke Alcoholism Mental health disorder Father Diabetes mellitus Hypertension Grandmother Pancreatic cancer Grandfather Diabetes mellitus Social History marital status: number of children: 1 (shared custody) household members: family lives independently: Yes caregiver/support person: Yes housing: apartment pets and animals: Yes (dog) education level: college (some college) 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[employer]) current occupational exposures/hazards: Yes special gracia needs: No travel history: recent (domestic only) seatbelt use: always water heater temp set < 120 deg: Yes working smoke detector in home: Yes fire extinguisher in home: Yes carbon monox detector in home: Yes firearms in home: No do you feel safe at home: Yes second hand exposure: No alcohol intake: former (very rarely when not ) substance use type: does not use during the past year weight has: decreased > 10 lbs (intentional w/ meds) well-balanced diet: rarely or never daily servings fruits/ve-1 caffeine: Yes (80-100mg/day) alcohol intake frequency: 0-2 drinks per day Exam Narrative Exam Narrative: GEN: well nourished, well appearing female, alert and oriented x [default value], patient appears to be in mild distress. HEENT: Atraumatic, pupils are equal round reactive to light, extraocular movements are intact, mild nasal congestion, there is no conjunctival pallor. HEART: Regular rate and rhythm without murmur, clicks, rubs. LUNGS:Lungs clear to auscultation, no wheezes, rales, crackles, chest moves symmetrically, no tachypnea or accessory muscle use patient has dry persistent cough, ABD:bowel sounds normal, soft, non-tender, no guarding, rebound, rigidity, no masses noted, no hepatosplenomegaly :No CVA tenderness MSCL: Non-tender, no muscle atrophy, muscles strength 5/5 upper and lower extremities, full range of motion, normal gait NEURO:CN 2-12 intact, sensation normal Initial Vital Signs Initial Vital Signs: Vital Signs Temperature 98.3 F 04/19/25 12:37 Pulse Rate 79 04/19/25 12:37 Respiratory Rate 18 04/19/25 12:37 Blood Pressure 133/63 04/19/25 12:37 Pulse Oximetry 100 04/19/25 12:37 Oxygen Delivery Method Room Air 04/19/25 12:37 Course Orders Ordered: ED Orders 04/19/25 12:47 Chest [XR chest 1V] Stat 04/19/25 13:02 CBC Auto Diff [Complete Blood Count AUTO DIFF] Stat CMP [Comprehensive Metabolic Panel] Stat Lipase Stat 04/19/25 13:26 Covid-19 + FLU A/B + RSV - PCR Stat Discontinued Medications Sodium Chloride (Normal Saline 0.9%) 1,000 mls @ 1,000 mls/hr IV BOLUS ONE Stop: 04/19/25 13:46 Last Infusion: 04/19/25 14:17 Dose: Infused Documented By: Admin: 04/19/25 13:30 Dose: 1,000 mls/hr Documented By: ANU Ondansetron HCl (Ondansetron 4 Mg/2 Ml Inj) 4 mg IV NOW ONE Stop: 04/19/25 12:48 Last Admin: 04/19/25 13:29 Dose: 4 mg Documented By: ANU Vital Signs Vital signs: Vital Signs - 8 hr 04/19/25 12:37 Temperature 98.3 F Pulse Rate 79 Respiratory Rate 18 Blood Pressure 133/63 Pulse Oximetry 100 Oxygen Delivery Method Room Air Medical Decision Making Lab Data 04/19/25 13:02 04/19/25 13:02 Labs: Lab Results 04/19/25 04/19/25 Range/Units 13:02 13:26 WBC 8.3 (4.5-11.0) X10^3/uL RBC 4.35 (4.0-5.2) X10^6/uL Hgb 13.3 (12.0-16.0) g/dL Hct 38.0 (36-46) % MCV 87.4 (80-100) fL MCH 30.7 (26-34) PG MCHC 35.1 (30-36) % RDW 13.2 (11.6-14.8) % Plt Count 203 (150-400) X10^3/uL Neut % (Auto) 75.7 H (50-75) % Lymph % (Auto) 17.1 L (25-40) % Isabella % (Auto) 6.3 (3-14) % Eos % (Auto) 0.4 L (2-4) % Baso % (Auto) 0.5 (0-2) % Neut # (Auto) 6300 (8530-0470) /uL Lymph # (Auto) 1400 (3851-2118) /uL Isabella # (Auto) 500 (0-900) /uL Eos # (Auto) 0 (0-450) /uL Baso # (Auto) 0 (0-100) /uL Sodium 135 L (137-145) mmol/L Potassium 4.0 (3.4-5.1) mmol/L Chloride 103 (98-107) mmol/L Carbon Dioxide 22 (22-32) mmol/L BUN 8 (7-17) mg/dL Creatinine 0.55 (0.52-1.04) mg/dL Estimated GFR > 60 (>60) mL/min BUN/Creatinine Ratio 14.5 (6-22) Glucose 87 (70-99) mg/dL Calcium 8.7 (8.4-10.2) mg/dL Total Bilirubin 0.6 (0.2-1.3) mg/dL AST 21 (14-36) IU/L ALT 15 (<35) IU/L Alkaline Phosphatase 64 (38-126) U/L Total Protein 7.7 (6.3-8.2) g/dL Albumin 4.4 (3.5-5.0) g/dL Globulin 3.3 (1.7-4.1) g/dL Albumin/Globulin Ratio 1.3 (1.0-2.8) Lipase 143 (23-300) U/L SARS-CoV-2 (PCR) Negative (Negative) Influenza A (RT-PCR) Flu a positive H (NEGATIVE) Influenza B (RT-PCR) Flu b negative (NEGATIVE) RSV (PCR) Negative (Negative) MDM Narrative Medical decision making narrative: Labs show normal white count, hemoglobin and platelets, chemistries are appropriate Chest x-ray shows no acute cardiopulmonary change COVID/influenza/RSV is positive for influenza A Patient received fluids and Zofran 35-year-old female 11 weeks , patient did test positive for influenza A symptoms initially started 9 days ago but worsening over the last 3 days. 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 Wick states would not started at this time based on findings and time frame. Patient is overall well-appearing. Discussed findings with the patient she has a ondansetron at home. Encouraged her to continue with Tylenol as needed and fluids we will give a work note and return precautions. Discharge Plan Departure Patient Disposition: Home Clinical Impression: Influenza A Instructions: DI for Influenza -- Adult Activity Restrictions/Additional Instructions: Follow up for recheck as needed, you did test positive for influenza A. This is a viral illness that typically last 7-10 days. Continue to hydrate regularly, you can take acetaminophen up to a 1000 mg every 6 hours for any headaches or muscle aches. If you have Zofran or ondansetron you can take 1 tablet every 6-8 hours as needed. Please return if you develop new fevers, new chest pain or increasing shortness of breath, worsening cough, lightheadedness or passing out, persistent vomiting, new swelling of your extremities or other new or concerning changes. Prescriptions: No Action metformin 500 mg tablet 500 mg PO DAILY vit-ferrous sulfat-FA 27 mg iron- 0.8 mg tablet PO escitalopram oxalate [Lexapro] 20 mg tablet 20 mg PO DAILY ondansetron 4 mg tablet,disintegrating 4 mg PO Q8H PRN (Reason: nausea and vomiting) Qty: 20 0RF pyridoxine (vitamin B6) 25 mg tablet 25 mg PO BID Qty: 60 1RF Unisom (doxylamine) 25 mg tablet 25 mg PO BEDTIME Qty: 60 0RF Referrals: Cande Kaur FNP-BC [Primary Care Provider, Family Practice] Stand Alone Forms: Patient Portal/API, Work Release Note
--- NOTE | 2025-04-19 12:47 | DI.RAD.S_ITS ---
PROCEDURE: XR CHEST 1V INDICATIONS: cough 1 week plus, + TECHNIQUE: One view of the chest was acquired. COMPARISON: None. FINDINGS: Surgical changes and devices: None. Lungs and pleura: Lungs are clear. No pleural effusions or pneumothorax. Mediastinum: Mediastinal contours appear normal. Heart size is normal. Bones and chest wall: No suspicious bony lesions. Overlying soft tissues appear unremarkable. IMPRESSION: No acute cardiopulmonary abnormality is seen. Dictated by: Bruno Doe M.D. on 04/19/2025 at 14:24 Approved by: Bruno Doe M.D. on 04/19/2025 at 14:24
[2025-04-19 13:10] LABS: Add Manual Diff / Slide Review NO; Hematocrit 38.0 % (36-46); Hemoglobin 13.3 g/dL (12.0-16.0); Lymphocytes Absolute Auto 1400 /uL (1100-4500); Mean Corpuscular HGB Conc 35.1 % (30-36); Mean Corpuscular Hemoglobin 30.7 PG (26-34); Mean Corpuscular Volume 87.4 fL (80-100); Platelet Count 203 X10^3/uL (150-400)
[2025-04-19 13:28] LABS: Alanine Aminotransferase 15 IU/L (<35); Albumin 4.4 g/dL (3.5-5.0); Albumin Globulin Ratio 1.3 (1.0-2.8); Alkaline Phosphatase 64 U/L (38-126); Blood Urea Nitrogen 8 mg/dL (7-17); Calcium 8.7 mg/dL (8.4-10.2); Carbon Dioxide 22 mmol/L (22-32); Chloride 103 mmol/L (98-107); Estimated Glomerular Filt Rate > 60 mL/min (>60); Globulin 3.3 g/dL (1.7-4.1); Glucose 87 mg/dL (70-99); HEMOLYSIS < 15 (0-50); Lipase 143 U/L (23-300); Potassium 4.0 mmol/L (3.4-5.1); Sodium 135 mmol/L (137-145); Total Protein 7.7 g/dL (6.3-8.2)
[2025-04-19] MEDS: ONDANSETRON 4 MG/2 ML INJ IV (13:29)
[2025-04-19] MEDS: SODIUM CHLORIDE 0.9% 1,000 ML 1000 ML IV (13:30)
[2025-04-19 14:33] LABS: COVID-19 CEPHEID 4-PLEX PCR Negative (Negative); Influenza A - CEPHEID Flu A POSITIVE (NEGATIVE); Influenza B - CEPHEID Flu B NEGATIVE (NEGATIVE)
== END 2025-04-19 15:05 | disposition home or self-care (01) ==
PROVIDERS: Emergency Provider Emergency Medicine; PCP Nurse Practitioner Family
DX: O26.891 Other specified pregnancy related conditions, first trimester (principal); J10.1 Influenza due to other identified influenza virus with other respiratory manifestations; Z3A.11 11 weeks gestation of pregnancy
CPT/HCPCS: 71045; 80053; 83690; 85025; 87637; 99283; 99284; J2405; J7030

== ENCOUNTER → 2025-04-20 10:55 | Outpatient (CLI) | payer OTHER, SELFPAY ==
[2024-08-18 08:37] VITALS: BMI 28.0
[2025-04-20 11:54] LABS: Add Manual Diff / Slide Review NO; Hematocrit 36.9 % (36-46); Hemoglobin 12.8 g/dL (12.0-16.0); Lymphocytes Absolute Auto 1500 /uL (1100-4500); Mean Corpuscular HGB Conc 34.7 % (30-36); Mean Corpuscular Hemoglobin 30.3 PG (26-34); Mean Corpuscular Volume 87.3 fL (80-100); Platelet Count 193 X10^3/uL (150-400)
[2025-04-20 12:23] LABS: Hemoglobin A1C% w Est Avg Glu 4.8 % (4.0-6.0)
[2025-04-20 16:58] LABS: Hepatitis B Surface Antigen NEGATIVE s/c (NEGATIVE)
[2025-04-20 17:17] LABS: HIV 1 & 2 Ab/Ag 4th Gen Combo NEGATIVE (NEGATIVE); Hep C Virus Ab w/Reflex Quant NEGATIVE s/c (NEGATIVE)
== END ==
PROVIDERS: PCP Nurse Practitioner Family; Referring Provider Obstetrics & Gynecology; Visit Provider Obstetrics & Gynecology
DX: Z34.80 Encounter for supervision of other normal pregnancy, unspecified trimester (principal); E28.2 Polycystic ovarian syndrome; Z3A.11 11 weeks gestation of pregnancy
CPT/HCPCS: 36415; 80055; 83036; 86787; 86803; 86850; 86900; 86901; 87086; 87389; 87491; 87563; 87591

== ENCOUNTER → 2025-04-22 08:34 | Outpatient (CLI) | payer OTHER, SELFPAY ==
[2024-08-18 08:37] VITALS: BMI 28.0
[2025-04-22 10:01] LABS: Natera Collection Specimen Collected
== END ==
PROVIDERS: Obstetrics & Gynecology; PCP Nurse Practitioner Family; Referring Provider Nurse Practitioner Family; Visit Provider Obstetrics & Gynecology
DX: O09.511 Supervision of elderly primigravida, first trimester (principal); Z3A.11 11 weeks gestation of pregnancy
CPT/HCPCS: 36415